=== PATIENT | female | born 1950 | race Caucasian/White ===

== ENCOUNTER → 2018-02-17 00:56 | Outpatient (CLI) | payer MEDICARE, SELFPAY ==
--- NOTE | 2018-02-17 11:01 | DI.REPORT_ITS ---
SYMPTOM/DIAGNOSIS: SCREENING MAMMO, Z12.31, PREVENTATIVE HEALTH ARE Z00.00 MAMMOGRAM: 02/17 Mammograms were interpreted according to the usual protocol including computer analysis with CAD system, tomosynthesis and C view imaging. The breasts are of moderate density with fairly symmetrical distribution of fibroglandular tissue. No dominant mass or clumped microcalcification identified in either breast No previous films available for comparison. CONCLUSION: No specific evidence of malignancy at this time. Routine screening examinations are suggested at yearly intervals in the age group according to the ACS/ACR guidelines. Category 1. Breast density category B. MQSA ASSESSMENT OF FINDINGS: Negative. Category 1. Patient will receive a letter notifying them of these results. BI-RADS category B. There are scattered areas of fibroglandular density.
== END ==
PROVIDERS: PCP Internal Medicine; Visit Provider Nurse Practitioner Family
DX: Z12.31 Encounter for screening mammogram for malignant neoplasm of breast (principal)
CPT/HCPCS: 77063; 77067

== ENCOUNTER 2018-02-22 10:30 | Outpatient (RCR) | payer MEDICARE, SELFPAY ==
--- NOTE | 2018-02-09 11:53 | PTTR_ITS ---
DATE: 02/09/18 SUBJECTIVE: Paola continues to note improvement in her mobility and functional activities. OBJECTIVE: * [X] Aquatic Therapy - (95653 x1): Patient completed a therapeutic exercise program in an aquatic setting for global strengthening and conditioning with decompression for pain relief, as per flow sheet. Patient required skilled to avoid compensatory movement patterns. Patient tolerated a slight progression in her program today, with good tolerance. Patient was encouraged to perform activities without pool wall support, to focus on improved core stability. Patient ended with deep water biking, DKTC, and traction. Direct treatment time: 15 minutes Total treatment time: 35 minutes
--- NOTE | 2018-02-11 15:44 | AT_ITS ---
02/11/18 SUBJECTIVE: Paola reports that she is feeling pretty sore today and states that it is something that she must have done at home and doesn't feel that it is related to her aquatic therapy program. She also reports that she has continued difficulty with descending stairs and would like to work on that a little bit if possible. ATx1 Pt completed a therapeutic exercise program in aquatic setting for general conditioning with decompression for pain relief as per flow sheet. Added functional step down exercise today to pt's program which was tolerated well. Pt tolerated a progression in her program today with modifications made to reps are noted on flow sheet. Pt ends with deep water biking, BKKC and traction. Direct Time: 20 minutes Total Time: 40 minutes
--- NOTE | 2018-02-16 10:30 | NT_ITS ---
02/16/18 Cancelled today's aquatic therapy session. Svetlana Lujan, CARD PLAYER
--- NOTE | 2018-02-18 15:31 | PTTR_ITS ---
DATE: 02/18/18 SUBJECTIVE: Alyssa states that she's a little stiff today, as she was not able to make it to the pool on Thursday. OBJECTIVE: * [X] Aquatic Therapy - (88165 x1): Patient completed a therapeutic exercise program in an aquatic setting for general conditioning with decompression for pain relief, as per flow sheet. Patient was able to tolerate a progression in her program today, see flow sheet for modifications made to reps and resistance. Patient continues to require cuing for posture and appropriate movement mechanics. Patient ends with deep end biking and traction. Direct treatment time: 20 minutes Total treatment time: 40 minutes
--- NOTE | 2018-02-22 10:30 | PTTR_ITS ---
DATE: 02/22/18 SUBJECTIVE: Paola is in good spirits today. She feels that she still making steady progress. Pool has been helpful. She is able to stay on her feet for 10 min periods now before her back pain starts bothering her, then she sits for a couple mins and it resolves, then she is back up and going. She notes that she is about 75% back to her normal functional activities including housework, etc. . . Her boy wants to take her to the fair, but she does not feel she is capable of handling this yet due to her inability to stand for prolonged period and does not want to spend time in a wheelchair at the [facility], etc. . . She also complains of occasional paresthesias throughout the lateral aspect of the R thigh, not necessarily associated with having back pain. She is sleeping well. Therapeutic procedures (13048u7). She is recovering from an L3 radiculitis. She has been attending aqua therapy for decompression and strengthening exercises. She is on an independent program now. GAIT: Ambulates with some mild antalgia on the R. ARTICULAR: Lumbar movements flexion is non-painful. Distance between fingertips and floor is approximately 8-10. Her extension is at 0 to +10 degrees and sidebending is non-painful, although hypomobile. Her hip movements are non-irritable. She has mild limitation within an articular pattern on the R. She has (-) SLR bilaterally, but tight hamstrings at 60 degrees, (-) femoral nerve stretch today. NEURO: Decreased KJ on the R +1 compared to +2 L. AJ's are hyporeflexive. She still has weakness with her R hip flexor at 4/5, very subtle weakness of the R quad compared to last visit. She has diminished sensation to light touch throughout the anterolateral aspect of the R thigh. Remaining musculature is 5/5. I upgrade her HEP to include additional core strengthening exercises, with abdominal strengthening while performing her Kegel exercise, along with diaphragmatic breathing. Direct treatment time: 30 mins Total treatment time: 30 mins A: Continues to move in a positive direction. She still has some weakness with her R hip flexor, but stronger than when last seen. More importantly, she is having much less pain and she is up and about more now and she is still seeing changes from week to week. P: Encourage Lacy to continue with her aqua program along with her core strengthening. Will give her another month to heal, then if she continues to improve at the rate she has been, will start her on some dry land strengthening and conditioning program, etc. . . . DLW/dl
== END 2018-03-05 23:59 | disposition home or self-care (01) ==
LOC: PT 10:30
PROVIDERS: PCP Internal Medicine; Referring Provider Physician Assistant; Visit Provider Physician Assistant
DX: M54.41 Lumbago with sciatica, right side (principal)
CPT/HCPCS: 97110; 97113

== ENCOUNTER 2018-03-05 09:38 | Outpatient (CLI) | payer MEDICARE, SELFPAY ==
--- NOTE | 2018-03-05 08:30 | DIABASSESS_ITS ---
DESCRIPTION/ASSESSMENT: Paola presents for diabetes self management with aq focus on food due to a 25 pound weight gain and high blood sugars. She reports eating apple and nuts for breakfast; hamburg with bun for lunch, hamburg with lettuce/tomato for supper. This is typical for amount of carbohydrate eaten in a meal. She is eating up to 4 carbohydrate servings most days. Paola is physically active with water aerobics through PT and does her home PT exercises faithfully daily. She has suffered from a herniated disc and received steroids which also caused her blood sugars to increase. She was not able to get them back down after stopping the prednisone. Paola monitors blood sugars before each meal and has documented blood sugar, food and insulin dosing. She states it is helpful to document her food. She takes 46units Lantus and insulin for food based on food plus insulin correction. She recognizes that the insulin correction dose is not correcting her blood sugars. INTERVENTION: DSME is provided in the following AADE 7 areas based on patients interest and assessment of needs: Discussed food choices and she agrees she could give up bread, recognizing she needs to do something different. Discussed increased insulin dosing impact on weight. Despite that, she will increase her basal insulin to 50units and follow fasting blood sugar. ACTION PLAN: Paola will cut out all grains and increase vegetables for the next week; increase basal insulin to 50units; continue tracking food. We will be in touch early next week. Individual MNT __3__ units billed TIME IN: 829 OUT: 924 No DM group education series being offered at this time.
== END 2018-03-05 09:39 ==
PROVIDERS: PCP Internal Medicine; Visit Provider Dietitian, Registered
DX: E11.9 Type 2 diabetes mellitus without complications (principal); Z79.4 Long term (current) use of insulin; Z71.3 Dietary counseling and surveillance
CPT/HCPCS: 97802

== ENCOUNTER 2018-03-29 12:29 | Outpatient (REF) | payer MEDICARE, SELFPAY ==
[2018-03-29 13:29] LABS: Absolute Basophil Count 0.01 k/cumm (0.0-0.2); Absolute Eosinophil Count 0.13 k/cumm (0.0-0.7); Absolute Lymphocyte Count 0.87 k/cumm (1.2-3.4); Absolute Monocyte Count 0.22 k/cumm (0.11-0.7); Absolute Neutrophil Count 2.16 k/cumm (1.2-6.7); Basophils % 0.3; Eosinophils % 3.8; HCT 37.4 % (36.0-46.0); HGB 12.4 g/dL (12.0-15.5); Lymphocytes % 25.7; Mean Corp. HGB Concentration 33.2 g/dL (32.0-36.0); Mean Corpuscular Hemoglobin 28.3 pg (27.0-33.0); Mean Corpuscular Volume 85.4 fL (80-95); Monocytes % 6.5; Neutrophils % 63.7; Platelet Count 115 x1000/uL (130-400); RBC 4.38 m/cumm (4.00-5.20); RBC Distribution Width 14.5 % (11.7-14.6); White Blood Cell Count 3.39 k/cumm (4.4-10.8)
[2018-03-29 14:08] LABS: ALT 39 U/L (12-78); AST 27 U/L (15-37); Albumin 3.6 g/dL (3.4-5.0); Alkaline Phosphatase 90 U/L (46-116); Anion Gap 13.1 mmol/L (3-11); BUN 25 mg/dL (7-18); Bilirubin, Total 0.5 mg/dL (0.2-1.0); CO2 25.9 mmol/L (21.0-32.0); CREATININE 1.09 mg/dL (0.55-1.02); Calcium 9.1 mg/dL (8.5-10.1); Chloride 105 mmol/L (98-107); Estimated GFR 49.92 (mL/min/1.73m2); Glucose 152 mg/dL (70-100); Magnesium 1.7 mg/dL (1.8-2.4); Potassium 3.9 mmol/L (3.5-5.1); Sodium 144 mmol/L (136-145); Total Protein 6.9 g/dL (6.4-8.2); Vitamin B12 627 pg/mL (193-986)
== END 2018-03-29 12:49 ==
LOC: NCHCN 12:29
PROVIDERS: PCP Internal Medicine; Visit Provider Nurse Practitioner Family
DX: G47.62 Sleep related leg cramps (principal); F43.23 Adjustment disorder with mixed anxiety and depressed mood; E11.9 Type 2 diabetes mellitus without complications; E78.5 Hyperlipidemia, unspecified; K30 Functional dyspepsia; E66.9 Obesity, unspecified; M54.5 Low back pain; D50.9 Iron deficiency anemia, unspecified
CPT/HCPCS: 80053; 82607; 83735; 85025

== ENCOUNTER 2018-04-26 08:44 | Outpatient (CLI) | payer MEDICARE, SELFPAY ==
[2018-04-26 13:18] LABS: Abs Immature Grans 0.01 k/cumm (0.0-0.09); Absolute Basophil Count 0.02 k/cumm (0.0-0.2); Absolute Eosinophil Count 0.15 k/cumm (0.0-0.7); Absolute Lymphocyte Count 1.16 k/cumm (1.2-3.4); Absolute Monocyte Count 0.32 k/cumm (0.11-0.7); Absolute Neutrophil Count 3.59 k/cumm (1.2-6.7); Basophils % 0.4; Eosinophils % 2.9; HGB 13.3 g/dL (12.0-15.5); Immature Grans % 0.2; Lymphocytes % 22.1; Mean Corp. HGB Concentration 34.1 g/dL (32.0-36.0); Mean Corpuscular Hemoglobin 28.2 pg (27.0-33.0); Mean Corpuscular Volume 82.6 fL (80-95); Mean Platelet Volume 9.7 fL (8.0-11.0); Monocytes % 6.1; Neutrophils % 68.3; Platelet Count 125 x1000/uL (130-400); RBC 4.72 m/cumm (4.00-5.20); RBC Distribution Width 14.5 % (11.7-14.6); White Blood Cell Count 5.25 k/cumm (4.4-10.8)
[2018-04-26 13:30] LABS: ALT 34 U/L (12-78); AST 30 U/L (15-37); Albumin 3.6 g/dL (3.4-5.0); Alkaline Phosphatase 94 U/L (46-116); Anion Gap 12.2 mmol/L (3-11); BUN 24 mg/dL (7-18); Bilirubin, Total 0.8 mg/dL (0.2-1.0); CO2 25.8 mmol/L (21.0-32.0); CREATININE 1.11 mg/dL (0.55-1.02); Calcium 9.3 mg/dL (8.5-10.1); Chloride 101 mmol/L (98-107); Estimated GFR 48.88 (mL/min/1.73m2); Glucose 141 mg/dL (70-100); Potassium 3.8 mmol/L (3.5-5.1); Sodium 139 mmol/L (136-145); Total Protein 7.6 g/dL (6.4-8.2)
[2018-04-26 13:36] LABS: Iron 104 ug/dL (50-175); Total Iron Binding Capacity 373 ug/dL (250-450); Transferrin Sat 28 % (15-50)
[2018-04-26 13:56] LABS: Ferritin 35 ng/mL (8-388)
[2018-04-27 13:36] LABS: Albumin 55.1 % (55.8-66.1); Comment SEE COMMENTS; Monoclonal Spike SEE COMMENTS %; Total Protein 7.1 g/dl (6.3-8.2)
== END 2018-04-26 09:04 ==
PROVIDERS: PCP Internal Medicine; Visit Provider Internal Medicine Hematology & Oncology
DX: D50.0 Iron deficiency anemia secondary to blood loss (chronic) (principal); D69.6 Thrombocytopenia, unspecified; D47.2 Monoclonal gammopathy; Z96.642 Presence of left artificial hip joint; Z12.11 Encounter for screening for malignant neoplasm of colon; I10 Essential (primary) hypertension; E11.9 Type 2 diabetes mellitus without complications
CPT/HCPCS: 36415; 80053; 82728; 83540; 83550; 84165; 85025; 86320

== ENCOUNTER 2018-05-14 06:45 | Day surgery (SDC) | payer MEDICARE, SELFPAY ==
[2018-05-14 07:21] VITALS: BP 125/74; PULSE 95; RESP 18; TEMP 36.3; O2SAT 98
[2018-05-14] MEDS: Lactated Ringers 1,000 ML 30 ML IV (07:35)
--- NOTE | 2018-05-14 08:36 | BOWEL_PTH ---
PATIENT: Paola Rodriguez LOC: [facility] U#:[id number] AGE/SX: 67/F ROOM: RE05/14/[address]: Olayinka Grant DO : 1950 BED: DIS: 05/14/2018 SPEC #: [id number] RECD: 05/14/18 12:23 STATUS: ABIMAEL REQ #: [id number] NELIDA: 05/14/18 08:[address]: Olayinka Grant DEPT: Surgical Specimen RECD BY: Christiane Allred ENTERED: 05/14/18 12:24 SP TYPE: Bowel OTHR DR: Misael Qiu Tissues: 1 - BIOPSY BOWEL Procedures: GROSS AND MICRO LEVEL 4 Comments: [id number]
--- NOTE | 2018-05-14 08:57 | W.COLOREPORT ---
Date of service: 05/14/18 Time of Service: 08:22 Colonoscopy Report Date of procedure: 05/14/18 Pre-op diagnosis general: Colorectal cancer screening Post-op diagnosis procedure note: other (1. Ascending colon polyp 2. Scattered sigmoid diverticula) Procedure: Colonoscopy to the cecum with biopsy by cold forceps Surgeon: Olayinka Grant Anesthesia proc note operative: MAC (Monty Elizondo CRNA; ASA 3 Mallampati class II) Estimated blood loss (mL): 1 Pathology: other (A sending colon polyp) Complications: None Disposition: same day Indications: 67-year-old female presenting for colorectal cancer screening. She has no family history of colorectal cancer and has been asymptomatic. The colonoscopy procedure was discussed with her in the risks of the procedure was reviewed. All her questions were answered to her satisfaction. Prep: Miralax/Dulcolax (Prep quality good) Procedure Start Time: 07:22 Procedure End Time: 08:50 Retraction Time: 19 Findings: In examining the colon from cecum to anus, the patient was noted to have scattered sigmoid diverticulosis. One polyp less than 1 cm in greatest diameter was identified in the ascending colon and removed by cold biopsy forceps. No other abnormalities are noted of the colon, and, and anus. Procedure Description: The patient was seen in the day surgery waiting area. Her identification was confirmed, and procedure checked. She was then brought to the procedure room. Monitoring for telemetry, blood pressure, oxygen saturation, and end tidal CO2 monitoring were applied. An appropriate time out was performed to confirm, identification, allergies, medication, procedure, was performed. Sedation was titrated for affect by the DIVIDING MACHINE OPERATOR; Once adequate sedation was achieved, I performed a inspection of the external perineum, and a digitial rectal examination. No significant external abnormalities were noted. On digital rectal examination, there was no blood, no masses, good rectal tone. I advanced the colonoscope from the anus to the cecum under direct visualization. The cecum was identified by the ileal-cecal valve, and the appendiceal orifice. The scope was then withdrawn in circumferential manner from the cecum to the rectum. There were scattered diverticuli seen in the sigmoid colon, and a less than 1 cm in greatest diameter polyp was seen in the ascending colon, subsequently removed by cold biopsy forceps. No other abnormalities were noted of the colon. The scope was then withdrawn into the rectum, and retroflexed. No abnormalities were noted of the rectum or anorectal junction. The scope was then withdrawn, terminating the procedure. There were no complications during the procedure, and the patient tolerated the procedure well. She was returned to the day surgery recovery area in good condition. Plan: We will await pathology before making further recommendations.
--- NOTE | 2018-05-14 09:05 | W.PM.DSUDISC ---
Discharge Plan Disposition Patient Disposition: HOME Condition: Good Discharge Details Reason For Visit: SCREENING Attending Provider: Olayinka Grant Primary Care Provider: Misael Qiu Home Meds and New Rx's Prescriptions: Continue aspirin [Aspir-81] 81 MG tablet,delayed release (DR/EC) 81 mg PO DAILY Qty: 30 RF: 0 insulin detemir U-100 [Levemir FlexTouch U-100 Insuln] 100 UNIT/1 ML insulin pen 40 unit HS RF: 0 triamterene-hydrochlorothiazid [Dyazide] 1 EACH capsule 1 tab-cap PO DAILY RF: 0 blood-glucose meter [OneTouch UltraMini] 1 EACH kit 1 ea Miscellaneous DAILY RF: 0 atenolol 50 MG tablet 25 mg PO DAILY RF: 0 insulin aspart U-100 [Novolog Flexpen U-100 Insulin] 100 UNIT/1 ML insulin pen subcut RF: 0 bupropion HCl 300 MG tablet extended release 24 hr 300 mg PO DAILY RF: 0 magnesium oxide 400 MG capsule 400 mg PO BID RF: 0 TUMERIC DAILY RF: 0 docusate sodium 100 mg Capsule 100 mg PO DAILY RF: 0 multivitamin [Multi-Day] 1 EACH tablet 1 ea PO DAILY RF: 0 amoxicillin 500 MG capsule 4 tab PO DIRECTED RF: 0 atorvastatin 40 MG tablet 40 mg PO HS RF: 0 omeprazole 40 MG capsule,delayed release(DR/EC) 40 mg PO DAILY RF: 0 losartan 25 MG tablet 25 mg PO DAILY RF: 0 cinnamon bark 500 MG capsule 1,000 mg PO DAILY RF: 0 potassium chloride [K-Tab] 20 MEQ tablet extended release 20 meq PO BID RF: 0 Discharge Instructions Instructions: Colonoscopy (DC) Activity:: Activity as Tolerated Diet:: As Tolerated Discharge Orders Discharge Orders: Discharge Order (Routine); Ordered 05/14/18 Ordered By: Olayinka Grant DS: Diagnosis Discharge Diagnosis (1) Encounter for screening colonoscopy: Start date: 05/14/18 Start time: 07:22 Status: Acute Asessment and Plan: Colonoscopy performed Colonoscopy Report Date of procedure: 05/14/18 Pre-op diagnosis general: Colorectal cancer screening Post-op diagnosis procedure note: other (1. Ascending colon polyp 2. Scattered sigmoid diverticula) Procedure: Colonoscopy to the cecum with biopsy by cold forceps Surgeon: Olayinka Grant Anesthesia proc note operative: MAC (Monty Elizondo CRNA; ASA 3 Mallampati class II) Estimated blood loss (mL): 1 Pathology: other (A sending colon polyp) Complications: None Disposition: same day Indications: 67-year-old female presenting for colorectal cancer screening. She has no family history of colorectal cancer and has been asymptomatic. The colonoscopy procedure was discussed with her in the risks of the procedure was reviewed. All her questions were answered to her satisfaction. Prep: Miralax/Dulcolax (Prep quality good) Procedure Start Time: 07:22 Procedure End Time: 08:50 Retraction Time: 19 Findings: In examining the colon from cecum to anus, the patient was noted to have scattered sigmoid diverticulosis. One polyp less than 1 cm in greatest diameter was identified in the ascending colon and removed by cold biopsy forceps. No other abnormalities are noted of the colon, and, and anus. Procedure Description: The patient was seen in the day surgery waiting area. Her identification was confirmed, and procedure checked. She was then brought to the procedure room. Monitoring for telemetry, blood pressure, oxygen saturation, and end tidal CO2 monitoring were applied. An appropriate time out was performed to confirm, identification, allergies, medication, procedure, was performed. Sedation was titrated for affect by the CARTRIDGE ASSEMBLING MACHINE ADJUSTER; Once adequate sedation was achieved, I performed a inspection of the external perineum, and a digitial rectal examination. No significant external abnormalities were noted. On digital rectal examination, there was no blood, no masses, good rectal tone. I advanced the colonoscope from the anus to the cecum under direct visualization. The cecum was identified by the ileal-cecal valve, and the appendiceal orifice. The scope was then withdrawn in circumferential manner from the cecum to the rectum. There were scattered diverticuli seen in the sigmoid colon, and a less than 1 cm in greatest diameter polyp was seen in the ascending colon subsequently removed by cold biopsy forceps. No other abnormalities were noted of the colon. The scope was then withdrawn into the rectum, and retroflexed. No abnormalities were noted of the rectum or anorectal junction. The scope was then withdrawn, terminating the procedure. There were no complications during the procedure, and the patient tolerated the procedure well. She was returned to the day surgery recovery area in good condition. Plan: We will await pathology before making further recommendations.
[2018-05-14 09:20] VITALS: BP 80/41; PULSE 78; RESP 16; TEMP 36; O2SAT 95
[2018-05-14 09:34] VITALS: BP 99/53; PULSE 78; RESP 16; TEMP 36.2; O2SAT 96
[2018-05-14 10:02] VITALS: BP 100/55; PULSE 77; RESP 16; TEMP 36; O2SAT 94
== END 2018-05-14 10:30 | disposition home or self-care (01) ==
PROVIDERS: PCP Internal Medicine; Visit Provider Surgery
PROC: 0DJD8ZZ Inspection of Lower Intestinal Tract, Via Natural or Artificial Opening Endoscopic (ICD-10-PCS; CPT 45378; principal; 2018-05-14 08:30)
DX: Z12.11 Encounter for screening for malignant neoplasm of colon (principal); K63.5 Polyp of colon; K57.30 Diverticulosis of large intestine without perforation or abscess without bleeding; E11.9 Type 2 diabetes mellitus without complications; Z79.4 Long term (current) use of insulin; I10 Essential (primary) hypertension
CPT/HCPCS: 45380; 88305

== ENCOUNTER 2018-08-09 13:11 | Outpatient (REF) | payer MEDICARE, SELFPAY ==
[2018-08-09 21:30] LABS: Magnesium 1.4 mg/dL (1.8-2.4)
== END 2018-08-09 13:31 ==
LOC: NCHCN 13:11
PROVIDERS: PCP Internal Medicine; Visit Provider Nurse Practitioner Family
DX: D50.9 Iron deficiency anemia, unspecified (principal); E11.9 Type 2 diabetes mellitus without complications; E78.5 Hyperlipidemia, unspecified; I10 Essential (primary) hypertension; F43.23 Adjustment disorder with mixed anxiety and depressed mood; E83.42 Hypomagnesemia; M54.5 Low back pain; G47.62 Sleep related leg cramps
CPT/HCPCS: 83735

== ENCOUNTER 2018-09-07 11:44 | Outpatient (REF) | payer MEDICARE, SELFPAY ==
[2018-09-07 21:27] LABS: Magnesium 1.6 mg/dL (1.8-2.4)
== END 2018-09-07 12:04 ==
LOC: NCHCN 11:44
PROVIDERS: PCP Internal Medicine; Visit Provider Nurse Practitioner Family
DX: E83.42 Hypomagnesemia (principal); G47.62 Sleep related leg cramps
CPT/HCPCS: 83735

== ENCOUNTER 2018-10-07 09:18 | Outpatient (REF) | payer MEDICARE, SELFPAY ==
[2018-10-07 12:25] LABS: Magnesium 1.6 mg/dL (1.8-2.4)
== END 2018-10-07 09:38 ==
LOC: NCHCN 09:18
PROVIDERS: PCP Internal Medicine; Visit Provider Nurse Practitioner Family
DX: E83.42 Hypomagnesemia (principal)
CPT/HCPCS: 83735

== ENCOUNTER 2018-11-19 12:11 | Outpatient (REF) | payer MEDICARE, SELFPAY ==
[2018-11-19 20:21] LABS: Magnesium 1.7 mg/dL (1.8-2.4)
== END 2018-11-19 12:31 ==
LOC: NCHCN 12:11
PROVIDERS: PCP Internal Medicine; Visit Provider Nurse Practitioner Family
DX: K30 Functional dyspepsia (principal); I10 Essential (primary) hypertension; E11.9 Type 2 diabetes mellitus without complications; E78.5 Hyperlipidemia, unspecified; E83.42 Hypomagnesemia; D50.9 Iron deficiency anemia, unspecified; F43.23 Adjustment disorder with mixed anxiety and depressed mood; E66.9 Obesity, unspecified
CPT/HCPCS: 83735

== ENCOUNTER 2018-11-30 01:13 | Outpatient (CLI) | payer MEDICARE, SELFPAY ==
--- NOTE | 2018-11-30 09:00 | DIABASSESS_ITS ---
DESCRIPTION/ASSESSMENT: Paola Rodriguez presents for diabetes self management with blood sugars higher than she would like. A1c ~9 Paola has started walking 1/2 hour a day for past few weeks. States she sleeps well ~6 hours a night. States her depression is improved on medication. She reports coping skills of walking away from stressful situations. Paola states she doesn't eat until lunchtime. Often has salad, vegetables and protein for lunch and supper. She has fruit or veggies in evening if hungry. Being bad means eating potato or bread. She has recently documented her food to see what might be causing blood sugars to vary, however she did not find that eating carbohydrate increased her blood sugar. She limits carbohydrate to 90 grams per day. Monitors blood sugars before meals and doses Novolog if she is eating. She wonders if she should take Novolog when she first gets up to correct hyperglycemia even when she isn't eating. Fasting blood sugars 2-300s; before other meals 100s-low 200s most meals. Medication of 46u Levemir once a day; mealtime insulin on scale with 10units for food and 1 unit to correct 20mg/dl above 130mg/dl. INTERVENTION: DSME is provided in the following AADE 7 areas based on patients interest and assessment of needs: Food Guidelines - discussed food choices for carbohydrate/sugar. Discussed hunger signs. Medication - It appears she does not have adequate medication given her food intake and blood sugars. Discussed using her scale as correction and adding 1 unit for 5 grams carbohydrate. In addition, blood sugars tend to be higher fasting than before supper. Suggest increasing basal insulin to 50units (10% increase). Discussed action of Levemir and benefit of Tresiba or longer acting basal insulin. Monitoring - Test blood sugar in the night 1-2 nights this week to assess basal insulin impact. ACTION PLAN: 50u Levemir at night; add 1 unit for 5 grams of carbohydrate with mealtime insulin dose by counting carbohydrate grams eaten Test blood sugar in the middle of the night Individual MNT __2__ units billed for 35 minute of a 50 minute visit. No DM group education series being offered at this time.
== END 2018-11-30 01:33 ==
PROVIDERS: PCP Internal Medicine; Visit Provider Dietitian, Registered
DX: E11.9 Type 2 diabetes mellitus without complications (principal); Z79.4 Long term (current) use of insulin; Z71.3 Dietary counseling and surveillance
CPT/HCPCS: 97802

== ENCOUNTER → 2019-01-27 08:54 | Outpatient (BNVA) | payer MEDICARE, SELFPAY | PROVIDERS: PCP Internal Medicine; Visit Provider Orthopaedic Surgery | DX: Z47.1 Aftercare following joint replacement surgery (principal); Z96.642 Presence of left artificial hip joint; I10 Essential (primary) hypertension; E11.9 Type 2 diabetes mellitus without complications; Z79.4 Long term (current) use of insulin | CPT/HCPCS: 99212; 99213 ==

== ENCOUNTER 2019-02-16 04:09 | Outpatient (CLI) | payer MEDICARE, SELFPAY ==
[2019-02-16 11:39] LABS: COMMENT (LAB VIEW ONLY) 150.56 mg/dL
[2019-02-16 12:23] LABS: Anion Gap 13.6 mmol/L (3-11); BUN 19 mg/dL (7-18); CO2 27.4 mmol/L (21.0-32.0); CREATININE 1.31 mg/dL (0.55-1.02); Calcium 9.3 mg/dL (8.5-10.1); Calculated LDL 102 mg/dL; Chloride 101 mmol/L (98-107); Cholesterol 190 mg/dL (50-200); Estimated GFR 40.26 (mL/min/1.73m2); Glucose 196 mg/dL (70-100); HDL Cholesterol 46 mg/dL (40-60); Potassium 3.9 mmol/L (3.5-5.1); Sodium 142 mmol/L (136-145); TSH 1.75 uIU/mL (0.36-3.74); Triglyceride 211 mg/dL (30-150)
[2019-02-17 12:18] LABS: C-Peptide 3.8 ng/mL (1.1 - 4.4)
== END 2019-02-16 04:29 ==
PROVIDERS: PCP Internal Medicine; Referring Provider Internal Medicine Hematology & Oncology; Visit Provider Internal Medicine Endocrinology, Diabetes & Metabolism
DX: E11.65 Type 2 diabetes mellitus with hyperglycemia (principal); Z68.41 Body mass index [BMI] 40.0-44.9, adult; E66.2 Morbid (severe) obesity with alveolar hypoventilation
CPT/HCPCS: 36415; 80048; 80061; 83721; 82043; 82570; 84443; 84681

== ENCOUNTER 2019-02-21 10:55 | Outpatient (REF) | payer MEDICARE, SELFPAY ==
[2019-02-21 12:21] LABS: Abs Immature Grans 0.01 k/cumm (0.0-0.09); Absolute Basophil Count 0.01 k/cumm (0.0-0.2); Absolute Eosinophil Count 0.16 k/cumm (0.0-0.7); Absolute Lymphocyte Count 1.03 k/cumm (1.2-3.4); Absolute Monocyte Count 0.27 k/cumm (0.11-0.7); Absolute Neutrophil Count 2.85 k/cumm (1.2-6.7); Basophils % 0.2; Eosinophils % 3.7; HCT 41.1 % (36.0-46.0); HGB 13.7 g/dL (12.0-15.5); Immature Grans % 0.2; Lymphocytes % 23.8; Mean Corp. HGB Concentration 33.3 g/dL (32.0-36.0); Mean Corpuscular Hemoglobin 28.5 pg (27.0-33.0); Mean Corpuscular Volume 85.6 fL (80-95); Mean Platelet Volume 10.4 fL (8.0-11.0); Monocytes % 6.2; Neutrophils % 65.9; Platelet Count 111 x1000/uL (130-400); RBC Distribution Width 13.8 % (11.7-14.6); White Blood Cell Count 4.33 k/cumm (4.4-10.8)
[2019-02-21 15:52] LABS: ALT 28 U/L (12-78); AST 20 U/L (15-37); Albumin 3.8 g/dL (3.4-5.0); Alkaline Phosphatase 99 U/L (46-116); Bilirubin, Total 0.7 mg/dL (0.2-1.0); Magnesium 1.8 mg/dL (1.8-2.4); TSH (W/Ref FT4) 2.27 uIU/mL (0.36-3.74); Total Protein 7.5 g/dL (6.4-8.2); Vitamin B12 485 pg/mL (193-986)
[2019-02-21 16:08] LABS: Bilirubin, Direct 0.18 mg/dL (0.00-0.20)
== END 2019-02-21 11:15 ==
LOC: NCHCN 10:55
PROVIDERS: PCP Internal Medicine; Visit Provider Nurse Practitioner Family
DX: E83.42 Hypomagnesemia (principal); E11.9 Type 2 diabetes mellitus without complications; N28.9 Disorder of kidney and ureter, unspecified; D50.9 Iron deficiency anemia, unspecified; D72.819 Decreased white blood cell count, unspecified; F43.23 Adjustment disorder with mixed anxiety and depressed mood; R47.01 Aphasia; M54.5 Low back pain
CPT/HCPCS: 80076; 82607; 83735; 84443; 85025

== ENCOUNTER 2019-05-31 15:13 | Outpatient (REF) | payer MEDICARE, SELFPAY ==
[2019-05-31 21:18] LABS: Abs Immature Grans 0.01 k/cumm (0.0-0.09); Absolute Basophil Count 0.02 k/cumm (0.0-0.2); Absolute Eosinophil Count 0.21 k/cumm (0.0-0.7); Absolute Lymphocyte Count 1.09 k/cumm (1.2-3.4); Absolute Monocyte Count 0.24 k/cumm (0.11-0.7); Absolute Neutrophil Count 3.22 k/cumm (1.2-6.7); Basophils % 0.4; Eosinophils % 4.4; HCT 40.7 % (36.0-46.0); Immature Grans % 0.2; Lymphocytes % 22.8; Mean Corp. HGB Concentration 34.4 g/dL (32.0-36.0); Mean Corpuscular Hemoglobin 29.2 pg (27.0-33.0); Mean Corpuscular Volume 84.8 fL (80-95); Mean Platelet Volume 10.3 fL (8.0-11.0); Neutrophils % 67.2; Platelet Count 123 x1000/uL (130-400); RBC Distribution Width 13.8 % (11.7-14.6); White Blood Cell Count 4.79 k/cumm (4.4-10.8)
[2019-05-31 21:47] LABS: ALT 33 U/L (14-59); AST 20 U/L (15-37); Albumin 3.8 g/dL (3.4-5.0); Alkaline Phosphatase 84 U/L (46-116); Anion Gap 12.6 mmol/L (3-11); BUN 21 mg/dL (7-18); Bilirubin, Total 0.8 mg/dL (0.2-1.0); CO2 25.4 mmol/L (21.0-32.0); CREATININE 1.32 mg/dL (0.55-1.02); Calcium 9.1 mg/dL (8.5-10.1); Chloride 103 mmol/L (98-107); Ferritin 71 ng/mL (8-252); Glucose 146 mg/dL (74-106); Sodium 141 mmol/L (136-145); Total Protein 7.4 g/dL (6.4-8.2)
[2019-06-03 11:07] LABS: Kappa Free Light Chain 4.27 mg/dL (0.33-1.94); Lambda Free Light Chain 2.46 mg/dL (0.57-2.63)
[2019-06-06 15:56] LABS: Albumin 57.6 % (55.8-66.1); Comment (See Note); Monoclonal Spike 2.5 % (None Seen); Total Protein 7.3 g/dL (6.3-8.2)
== END 2019-05-31 15:33 ==
LOC: NCHCN 15:13
PROVIDERS: PCP Internal Medicine; Visit Provider Nurse Practitioner Family
DX: D50.9 Iron deficiency anemia, unspecified (principal); D72.819 Decreased white blood cell count, unspecified; D69.6 Thrombocytopenia, unspecified; E83.42 Hypomagnesemia; I10 Essential (primary) hypertension; E11.9 Type 2 diabetes mellitus without complications; F43.23 Adjustment disorder with mixed anxiety and depressed mood; R25.1 Tremor, unspecified; M54.5 Low back pain; R47.01 Aphasia; N28.9 Disorder of kidney and ureter, unspecified
CPT/HCPCS: 80053; 82728; 83883; 84165; 85025

== ENCOUNTER 2019-07-08 11:35 | Outpatient (CLI) | payer MEDICARE, SELFPAY ==
[2019-07-08 13:00] LABS: ALT 34 U/L (14-59); AST 22 U/L (15-37); Albumin 3.6 g/dL (3.4-5.0); Alkaline Phosphatase 88 U/L (46-116); Anion Gap 11.6 mmol/L (3-11); BUN 26 mg/dL (7-18); Bilirubin, Total 0.7 mg/dL (0.2-1.0); CO2 26.4 mmol/L (21.0-32.0); CREATININE 1.19 mg/dL (0.55-1.02); Calcium 9.9 mg/dL (8.5-10.1); Chloride 103 mmol/L (98-107); Creatine Kinase 78 U/L (26-192); Estimated GFR 44.97 (mL/min/1.73m2); Glucose 206 mg/dL (74-106); Magnesium 1.5 mg/dL (1.8-2.4); Potassium 3.9 mmol/L (3.5-5.1); Sodium 141 mmol/L (136-145); Total Protein 7.2 g/dL (6.4-8.2)
[2019-07-08 13:03] LABS: Troponin I < 0.05 ng/Ml (<0.06)
== END 2019-07-08 11:55 ==
PROVIDERS: PCP Internal Medicine; Visit Provider Nurse Practitioner Family
DX: E07.9 Disorder of thyroid, unspecified (principal)
CPT/HCPCS: 36415; 80053; 82550; 83735; 84484

== ENCOUNTER 2019-08-30 10:11 | Outpatient (CLI) | payer MEDICARE, SELFPAY ==
[2019-08-30 11:29] LABS: ALT 30 U/L (14-59); AST 19 U/L (15-37); Albumin 3.7 g/dL (3.4-5.0); Alkaline Phosphatase 84 U/L (46-116); Anion Gap 8.8 mmol/L (3-11); BUN 18 mg/dL (7-18); Bilirubin, Total 0.7 mg/dL (0.2-1.0); CO2 31.2 mmol/L (21.0-32.0); CREATININE 1.19 mg/dL (0.55-1.02); Calcium 9.3 mg/dL (8.5-10.1); Chloride 103 mmol/L (98-107); Estimated GFR 44.97 (mL/min/1.73m2); Glucose 117 mg/dL (74-106); Potassium 3.8 mmol/L (3.5-5.1); Sodium 143 mmol/L (136-145); Total Protein 7.5 g/dL (6.4-8.2)
[2019-08-30 12:58] LABS: Hemoglobin A1C 6.7 % (3.8-5.6)
[2019-08-31 15:42] LABS: Fructosamine 253 mcmol/L (200 - 285)
== END 2019-08-30 10:31 ==
PROVIDERS: PCP Internal Medicine; Visit Provider Internal Medicine Endocrinology, Diabetes & Metabolism
DX: E11.65 Type 2 diabetes mellitus with hyperglycemia (principal)
CPT/HCPCS: 36415; 80053; 82985; 83036

== ENCOUNTER 2019-09-05 15:58 | Outpatient (REF) | payer MEDICARE, SELFPAY ==
[2019-09-05 21:42] LABS: Magnesium 2.1 mg/dL (1.8-2.4)
== END 2019-09-05 16:18 ==
LOC: NCHCN 15:58
PROVIDERS: PCP Internal Medicine; Visit Provider Nurse Practitioner Family
DX: I10 Essential (primary) hypertension (principal); E78.5 Hyperlipidemia, unspecified; E11.9 Type 2 diabetes mellitus without complications; D50.9 Iron deficiency anemia, unspecified
CPT/HCPCS: 83735

== ENCOUNTER 2019-12-13 12:25 | Outpatient (REF) | payer MEDICARE, SELFPAY ==
[2019-12-13 21:56] LABS: Abs Immature Grans 0.01 k/cumm (0.0-0.09); Absolute Basophil Count 0.01 k/cumm (0.0-0.2); Absolute Eosinophil Count 0.16 k/cumm (0.0-0.7); Absolute Monocyte Count 0.22 k/cumm (0.11-0.7); Absolute Neutrophil Count 2.52 k/cumm (1.2-6.7); Basophils % 0.3; Eosinophils % 4.3; HCT 40.4 % (36.0-46.0); HGB 13.9 g/dL (12.0-15.5); Immature Grans % 0.3 %; Lymphocytes % 21.5; Mean Corp. HGB Concentration 34.4 g/dL (32.0-36.0); Mean Corpuscular Hemoglobin 30.2 pg (27.0-33.0); Mean Corpuscular Volume 87.8 fL (80-95); Mean Platelet Volume 10.6 fL (8.0-11.0); Monocytes % 5.9; Neutrophils % 67.7; Platelet Count 95 x1000/uL (130-400); RBC Distribution Width 13.6 % (11.7-14.6); White Blood Cell Count 3.72 k/cumm (4.4-10.8)
[2019-12-13 22:23] LABS: Diff Comment Agrees w/ Instrument; RBC Morphology Normal
[2019-12-13 22:27] LABS: Iron 121 ug/dL (50-170); Total Iron Binding Capacity 300 ug/dL (250-450); Transferrin Sat 40 % (15-50)
[2019-12-13 23:07] LABS: ALT 44 U/L (14-59); AST 30 U/L (15-37); Albumin 3.7 g/dL (3.4-5.0); Alkaline Phosphatase 84 U/L (46-116); Anion Gap 10.2 mmol/L (3-11); BUN 22 mg/dL (7-18); Bilirubin, Total 0.8 mg/dL (0.2-1.0); CO2 26.8 mmol/L (21.0-32.0); Calcium 9.2 mg/dL (8.5-10.1); Chloride 104 mmol/L (98-107); Estimated GFR 40.49 (mL/min/1.73m2); Glucose 149 mg/dL (74-106); Magnesium 2.1 mg/dL (1.8-2.4); Sodium 141 mmol/L (136-145); TSH (W/Ref FT4) 1.11 uIU/mL (0.36-3.74); Total Protein 6.8 g/dL (6.4-8.2); Vitamin B12 427 pg/mL (193-986)
[2019-12-16 09:39] LABS: Fructosamine 251 mcmol/L (200 - 285)
== END 2019-12-13 12:45 ==
LOC: NCHCN 12:25
PROVIDERS: PCP Internal Medicine; Visit Provider Nurse Practitioner Family
DX: E11.9 Type 2 diabetes mellitus without complications (principal); I10 Essential (primary) hypertension; R42 Dizziness and giddiness; F43.23 Adjustment disorder with mixed anxiety and depressed mood; R25.1 Tremor, unspecified; N28.9 Disorder of kidney and ureter, unspecified; R19.8 Other specified symptoms and signs involving the digestive system and abdomen
CPT/HCPCS: 80053; 82607; 82985; 83540; 83550; 83735; 84443; 85025

== ENCOUNTER 2020-04-05 11:18 | Outpatient (REF) | payer MEDICARE, SELFPAY ==
[2020-04-05 20:59] LABS: COMMENT (LAB VIEW ONLY) 183.73 mg/dL; Microalb ug/mg Crea 3.3 ug/mg Cr
[2020-04-05 21:02] LABS: BUN 18 mg/dL (7-18); CREATININE 0.98 mg/dL (0.55-1.02); Chloride 106 mmol/L (98-107); Estimated GFR 56.11 (mL/min/1.73m2); Glucose 108 mg/dL (74-106); Potassium 3.6 mmol/L (3.5-5.1); Sodium 141 mmol/L (136-145)
[2020-04-05 21:12] LABS: Hemoglobin A1C 6.5 % (<5.7)
[2020-04-08 10:01] LABS: Fructosamine 261 mcmol/L (200 - 285)
== END 2020-04-05 11:38 ==
LOC: NCHCN 11:18
PROVIDERS: PCP Internal Medicine; Visit Provider Nurse Practitioner Family
DX: E11.9 Type 2 diabetes mellitus without complications (principal)
CPT/HCPCS: 80048; 82043; 82570; 82985; 83036

== ENCOUNTER 2020-07-31 10:02 | Outpatient (REF) | payer MEDICARE, SELFPAY ==
[2020-07-31 14:26] LABS: Hemoglobin A1C 6.7 % (<5.7)
[2020-07-31 14:44] LABS: ALT 29 U/L (14-59); AST 18 U/L (15-37); Albumin 3.7 g/dL (3.4-5.0); Alkaline Phosphatase 78 U/L (46-116); Anion Gap 10.6 mmol/L (3-11); BUN 28 mg/dL (7-18); Bilirubin, Total 0.7 mg/dL (0.2-1.0); CO2 26.4 mmol/L (21.0-32.0); CREATININE 1.37 mg/dL (0.55-1.02); Calcium 9.1 mg/dL (8.5-10.1); Chloride 104 mmol/L (98-107); Estimated GFR 38.12 (mL/min/1.73m2); Glucose 154 mg/dL (74-106); Potassium 3.4 mmol/L (3.5-5.1); Sodium 141 mmol/L (136-145); Total Protein 6.9 g/dL (6.4-8.2)
[2020-08-01 17:54] LABS: Fructosamine 263 mcmol/L (200 - 285)
== END 2020-07-31 10:22 ==
LOC: NCHCN 10:02
PROVIDERS: PCP Internal Medicine; Visit Provider Nurse Practitioner Family
DX: E11.65 Type 2 diabetes mellitus with hyperglycemia (principal)
CPT/HCPCS: 80053; 82985; 83036

== ENCOUNTER 2021-01-11 01:40 | Outpatient (CLI) | payer MEDICARE, SELFPAY ==
[2021-01-11 14:55] LABS: Hemoglobin A1C 6.8 % (<5.7)
[2021-01-11 16:41] LABS: ALT 27 U/L (14-59); AST 19 U/L (15-37); Albumin 3.7 g/dL (3.4-5.0); Alkaline Phosphatase 79 U/L (46-116); Anion Gap 9.6 mmol/L (3-11); BUN 26 mg/dL (7-18); Bilirubin, Total 0.7 mg/dL (0.2-1.0); CO2 29.4 mmol/L (21.0-32.0); CREATININE 1.2 mg/dL (0.55-1.02); Calcium 9.3 mg/dL (8.5-10.1); Chloride 105 mmol/L (98-107); Estimated GFR 44.29 (mL/min/1.73m2); Glucose 111 mg/dL (74-106); Potassium 3.8 mmol/L (3.5-5.1); Sodium 144 mmol/L (136-145); TSH 1.45 uIU/mL (0.36-3.74)
[2021-01-11 19:38] LABS: Calculated LDL 90 mg/dL (<100); Cholesterol 172 mg/dL (<200); HDL Cholesterol 52 mg/dL (40-60); Triglyceride 151 mg/dL (<150)
[2021-01-15 08:49] LABS: Fructosamine 280 mcmol/L (200 - 285)
== END 2021-01-11 01:41 | disposition home or self-care (01) ==
LOC: LBO 01:40
PROVIDERS: PCP Internal Medicine; Visit Provider Internal Medicine Endocrinology, Diabetes & Metabolism
DX: E11.65 Type 2 diabetes mellitus with hyperglycemia (principal)
CPT/HCPCS: 36415; 80053; 80061; 82985; 83036; 84443

== ENCOUNTER 2021-01-31 10:39 | Outpatient (REF) | payer MEDICARE, SELFPAY ==
[2021-01-31 15:08] LABS: Abs Immature Grans 0.01 10^3/uL (0.0-0.06); Absolute Basophil Count 0.03 10^3/uL (0.0-0.2); Absolute Eosinophil Count 0.26 10^3/uL (0.0-0.7); Absolute Lymphocyte Count 0.89 10^3/uL (1.2-3.4); Absolute Monocyte Count 0.27 10^3/uL (0.1-0.8); Absolute Neutrophil Count 3.01 10^3/uL (1.2-6.7); Basophils % 0.7; Eosinophils % 5.8; HCT 39.5 % (36.0-46.0); HGB 13.4 g/dL (11.2-15.7); Immature Grans % 0.2; Lymphocytes % 19.9; MCH 29.2 pg (27.0-33.0); MCHC 33.9 % (32.0-36.0); MCV 86.1 fL (80-95); MPV 9.7 fL (8.0-11.0); Neutrophils % 67.4; Nucleated RBC 0 %; RBC 4.59 10^6/uL (3.93-5.22); RDW 12.9 % (11.7-14.6); RDW-SD 40.1 fL; WBC 4.47 10^3/uL (4.4-10.8)
[2021-01-31 16:01] LABS: Platelet Count 93 10^3/uL (130-400)
[2021-01-31 16:02] LABS: Diff Comment PLT Morph Reviewed; RBC Morphology Normal
[2021-01-31 16:13] LABS: Iron 73 ug/dL (50-170); Total Iron Binding Capacity 284 ug/dL (250-450); Transferrin Sat 26 % (15-50)
== END 2021-01-31 10:40 | disposition home or self-care (01) ==
LOC: NCHCN 10:39
PROVIDERS: PCP Internal Medicine; Visit Provider Nurse Practitioner Family
DX: D69.6 Thrombocytopenia, unspecified (principal); E11.9 Type 2 diabetes mellitus without complications; N28.9 Disorder of kidney and ureter, unspecified; D72.819 Decreased white blood cell count, unspecified; E78.5 Hyperlipidemia, unspecified
CPT/HCPCS: 83540; 83550; 85025

== ENCOUNTER 2021-02-15 04:00 | Outpatient (CLI) | payer MEDICARE, SELFPAY ==
--- NOTE | 2021-02-15 | DI.MAMMO_ITS ---
Exam(s) MAMMO SCREENING EXAM: MAMMO SCREENING CLINICAL HISTORY: SCREENING, FAMILY H/O BREAST CA,Z12.31 TECHNIQUE: Bilateral full field digital CC and MLO mammographic images were obtained with 3D tomosyn thesis and utilizing computer aided detection (CAD). COMPARISON: Available for comparison. FINDINGS: Masses/Architectural Distortion: None seen. Microcalcifications: No suspicious pleomorphic-type are seen. Skin Thickening/Nipple Retraction: None. IMPRESSION: 1. No significant interval change with no specific features of malignancy noted. 2. Unless there is more urgent need, screening mammography is recommended, as per [employer] guidelines. BI-RADS Category 1 - Negative Breast Density - Category B - Scattered areas of fibroglandular density Breast density category C or D implies that the patient has dense breast tissue. Dense breast tissue is very common and is not abnormal but dense breast tissue can make it harder to find cancer on a ma mmogram. Also, dense breast tissue may increase their breast cancer risk. This information about the result of the mammogram report was provided to the patient to raise their awareness. Use this report when you speak with the patient about their risks for breast cancer, which includes their family hist ory. At that time, you may recommend for more screening tests (Ultrasound or MRI) as they might be us eful based on their risk. A negative radiographic report should not delay biopsy if a dominant or clinically suspicious mass is present. Up to ten percent of cancers are not identified on mammography. A negative report may reinforce clinical impression. Adenosis and dense breasts may obscure an underlying neoplasm. False positive reports average 6 to 10%. Patient will receive a letter notifying them of these results.
== END 2021-02-15 04:20 ==
PROVIDERS: PCP Internal Medicine; Visit Provider Nurse Practitioner Family
DX: Z12.31 Encounter for screening mammogram for malignant neoplasm of breast (principal); Z80.3 Family history of malignant neoplasm of breast
CPT/HCPCS: 77063; 77067

== ENCOUNTER 2021-08-02 01:39 | Outpatient (CLI) | payer MEDICARE, SELFPAY ==
--- NOTE | 2021-08-02 | DI.US_ITS ---
Exam(s) US ABDOMEN EXAM: US ABDOMEN CLINICAL HISTORY: THROMBOCYTOPENIA D69.6 ANEMIA D50.9,ACCESS LIVER AND SPLEEN W/MEASUREMENTS TECHNIQUE: Ultrasound abdomen performed using standard protocol. COMPARISON: No exams were available for comparison FINDINGS: ABDOMINAL AORTA AND IVC: Visualized portions normal caliber. PANCREAS: Normal where visualized. LIVER: Normal. Hepatopedal flow in the Portal Vein. The liver measures 14 cm long. GALLBLADDER:Status post cholecystectomy. BILIARY SYSTEM: Common bile duct measures < 7 mm. No intrahepatic biliary ductal dilation. KIDNEYS: Kidneys are symmetric in size. No evidence of renal calculi. No evidence of hydronephrosis. No renal mass or cyst identified. SPLEEN: The spleen measures 13.6 cm long. ASCITES: None seen. IMPRESSION: 1. Mild splenomegaly. 2. Status post cholecystectomy. No biliary ductal dilatation. DATA REPOSITORY:
== END 2021-08-02 01:59 ==
PROVIDERS: PCP Internal Medicine; Visit Provider Internal Medicine Hematology & Oncology
DX: D69.6 Thrombocytopenia, unspecified (principal); D50.9 Iron deficiency anemia, unspecified; R16.1 Splenomegaly, not elsewhere classified; Z90.49 Acquired absence of other specified parts of digestive tract
CPT/HCPCS: 76700

== ENCOUNTER 2021-08-02 12:22 | Outpatient (REF) | payer MEDICARE, SELFPAY ==
[2021-08-02 15:16] LABS: ALT 36 U/L (14-59); AST 26 U/L (15-37); Albumin 3.7 g/dL (3.4-5.0); Alkaline Phosphatase 92 U/L (46-116); Anion Gap 10.1 mmol/L (3-11); BUN 22 mg/dL (7-18); Bilirubin, Total 0.7 mg/dL (0.2-1.0); CO2 27.9 mmol/L (21.0-32.0); CREATININE 1.1 mg/dL (0.55-1.02); Calcium 9.6 mg/dL (8.5-10.1); Chloride 103 mmol/L (98-107); Estimated GFR 48.96 (mL/min/1.73m2); Glucose 125 mg/dL (74-106); Magnesium 1.8 mg/dL (1.8-2.4); Potassium 3.8 mmol/L (3.5-5.1); Sodium 141 mmol/L (136-145); Total Protein 7.1 g/dL (6.4-8.2)
[2021-08-02 15:17] LABS: Iron 81 ug/dL (50-170); Total Iron Binding Capacity 282 ug/dL (250-450); Transferrin Sat 29 % (15-50)
[2021-08-02 15:49] LABS: Ferritin 85 ng/mL (8-252)
== END 2021-08-02 12:23 | disposition home or self-care (01) ==
LOC: NCHCN 12:22
PROVIDERS: PCP Internal Medicine; Visit Provider Nurse Practitioner Family
DX: M25.59 Pain in other specified joint (principal); E11.9 Type 2 diabetes mellitus without complications; I10 Essential (primary) hypertension; E83.42 Hypomagnesemia; N28.9 Disorder of kidney and ureter, unspecified; R42 Dizziness and giddiness
CPT/HCPCS: 80053; 82728; 83540; 83550; 83735

== ENCOUNTER 2021-08-07 12:48 | Outpatient (CLI) | payer MEDICARE, SELFPAY ==
[2021-08-07 09:21] LABS: Abs Immature Grans 0.01 10^3/uL (0.0-0.06); Absolute Basophil Count 0.02 10^3/uL (0.0-0.2); Absolute Eosinophil Count 0.14 10^3/uL (0.0-0.7); Absolute Lymphocyte Count 0.86 10^3/uL (1.2-3.4); Absolute Neutrophil Count 2.67 10^3/uL (1.2-6.7); Basophils % 0.5; Eosinophils % 3.6; HCT 38.7 % (36.0-46.0); HGB 12.9 g/dL (11.2-15.7); Immature Grans % 0.3; Lymphocytes % 22.1; MCH 28.6 pg (27.0-33.0); MCHC 33.3 % (32.0-36.0); MCV 85.8 fL (80-95); MPV 8.8 fL (8.0-11.0); Monocytes % 5.1; Neutrophils % 68.4; Nucleated RBC 0 %; RBC 4.51 10^6/uL (3.93-5.22); RDW 13.5 % (11.7-14.6); RDW-SD 42.3 fL
[2021-08-07 09:39] LABS: Platelet Count 78 10^3/uL (130-400)
== END 2021-08-07 12:49 | disposition home or self-care (01) ==
LOC: LBO 12:50
PROVIDERS: PCP Internal Medicine; Visit Provider Internal Medicine Hematology & Oncology
DX: D50.9 Iron deficiency anemia, unspecified (principal)
CPT/HCPCS: 36415; 85025

== ENCOUNTER 2021-11-15 03:00 | Outpatient (CLI) | payer MEDICARE, SELFPAY ==
[2021-11-15 12:11] LABS: Abs Immature Grans 0.01 10^3/uL (0.0-0.06); Absolute Basophil Count 0.03 10^3/uL (0.0-0.2); Absolute Eosinophil Count 0.36 10^3/uL (0.0-0.7); Absolute Lymphocyte Count 0.86 10^3/uL (1.2-3.4); Absolute Monocyte Count 0.21 10^3/uL (0.1-0.8); Absolute Neutrophil Count 2.94 10^3/uL (1.2-6.7); Basophils % 0.7; Eosinophils % 8.2; HCT 36.7 % (36.0-46.0); HGB 12.3 g/dL (11.2-15.7); Immature Grans % 0.2; Lymphocytes % 19.5; MCH 28.9 pg (27.0-33.0); MCHC 33.5 % (32.0-36.0); MCV 86 fL (80-95); MPV 9.1 fL (8.0-11.0); Monocytes % 4.8; Neutrophils % 66.6; RBC 4.26 10^6/uL (3.93-5.22); RDW-SD 43.2 fL; WBC 4.41 10^3/uL (4.4-10.8)
[2021-11-15 12:30] LABS: Hemoglobin A1C 6.9 % (<5.7)
[2021-11-15 12:46] LABS: Platelet Count 98 10^3/uL (130-400)
[2021-11-15 13:17] LABS: ALT 36 U/L (14-59); AST 28 U/L (15-37); Albumin 3.6 g/dL (3.4-5.0); Alkaline Phosphatase 99 U/L (46-116); Anion Gap 8.4 mmol/L (3-11); BUN 16 mg/dL (7-18); Bilirubin, Total 0.8 mg/dL (0.2-1.0); CO2 30.6 mmol/L (21.0-32.0); CREATININE 1.2 mg/dL (0.55-1.02); Calcium 9.1 mg/dL (8.5-10.1); Chloride 102 mmol/L (98-107); Estimated GFR 44.16 (mL/min/1.73m2); Glucose 171 mg/dL (74-106); Potassium 4.1 mmol/L (3.5-5.1); Sodium 141 mmol/L (136-145); Total Protein 7.2 g/dL (6.4-8.2)
== END 2021-11-15 03:01 | disposition home or self-care (01) ==
PROVIDERS: Internal Medicine Endocrinology, Diabetes & Metabolism; PCP Internal Medicine; Visit Provider Internal Medicine Hematology & Oncology
DX: D50.9 Iron deficiency anemia, unspecified (principal); E11.9 Type 2 diabetes mellitus without complications
CPT/HCPCS: 36415; 80053; 83036; 85025

== ENCOUNTER 2022-02-10 09:57 | Outpatient (CLI) | payer MEDICARE, SELFPAY ==
[2022-02-10 11:27] LABS: Abs Immature Grans 0.01 10^3/uL (0.0-0.06); Absolute Basophil Count 0.03 10^3/uL (0.0-0.2); Absolute Eosinophil Count 0.24 10^3/uL (0.0-0.7); Absolute Lymphocyte Count 1.39 10^3/uL (1.2-3.4); Absolute Monocyte Count 0.33 10^3/uL (0.1-0.8); Absolute Neutrophil Count 3.27 10^3/uL (1.2-6.7); Basophils % 0.6; Eosinophils % 4.6; HCT 38.3 % (36.0-46.0); HGB 13.1 g/dL (11.2-15.7); Immature Grans % 0.2; Lymphocytes % 26.4; MCH 29.2 pg (27.0-33.0); MCHC 34.2 % (32.0-36.0); MCV 86 fL (80-95); MPV 9.3 fL (8.0-11.0); Monocytes % 6.3; Neutrophils % 61.9; RBC 4.48 10^6/uL (3.93-5.22); RDW 13.9 % (11.7-14.6); RDW-SD 43.1 fL; WBC 5.27 10^3/uL (4.4-10.8)
[2022-02-10 11:45] LABS: Platelet Count 96 10^3/uL (130-400)
[2022-02-10 12:03] LABS: ALT 30 U/L (14-59); AST 24 U/L (15-37); Albumin 3.4 g/dL (3.4-5.0); Alkaline Phosphatase 80 U/L (46-116); Anion Gap 8.8 mmol/L (3-11); BUN 27 mg/dL (7-18); Bilirubin, Total 0.7 mg/dL (0.2-1.0); CO2 29.2 mmol/L (21.0-32.0); CREATININE 1.1 mg/dL (0.55-1.02); Calcium 9.3 mg/dL (8.5-10.1); Chloride 104 mmol/L (98-107); Estimated GFR 48.82 (mL/min/1.73m2); Ferritin 96 ng/mL (8-252); Glucose 55 mg/dL (74-106); Potassium 3.2 mmol/L (3.5-5.1); Sodium 142 mmol/L (136-145); Total Protein 7.5 g/dL (6.4-8.2)
[2022-02-10 13:07] LABS: Iron 62 ug/dL (50-170); Total Iron Binding Capacity 310 ug/dL (250-450); Transferrin Sat 20 % (15-50)
== END 2022-02-10 09:58 | disposition home or self-care (01) ==
LOC: LBO 10:01
PROVIDERS: PCP Internal Medicine; Visit Provider Internal Medicine Hematology & Oncology
DX: D69.6 Thrombocytopenia, unspecified (principal); D50.0 Iron deficiency anemia secondary to blood loss (chronic)
CPT/HCPCS: 36415; 80053; 82728; 83540; 83550; 85025

== ENCOUNTER 2022-04-25 12:59 | Outpatient (REF) | payer MEDICARE, SELFPAY ==
[2022-04-25 15:10] LABS: ALT 35 U/L (14-59); AST 31 U/L (15-37); Albumin 3.7 g/dL (3.4-5.0); Alkaline Phosphatase 99 U/L (46-116); Anion Gap 9.2 mmol/L (3-11); BUN 22 mg/dL (7-18); Bilirubin, Total 0.9 mg/dL (0.2-1.0); CO2 27.8 mmol/L (21.0-32.0); CREATININE 1.3 mg/dL (0.55-1.02); Calcium 10.2 mg/dL (8.5-10.1); Chloride 103 mmol/L (98-107); Estimated GFR 43.69 (mL/min/1.73m2); Glucose 89 mg/dL (74-106); Sodium 140 mmol/L (136-145); Total Protein 7.7 g/dL (6.4-8.2)
[2022-04-25 15:42] LABS: Hemoglobin A1C 5.8 % (<5.7)
== END 2022-04-25 13:00 | disposition home or self-care (01) ==
LOC: NCHCN 12:59
PROVIDERS: PCP Internal Medicine; Visit Provider Nurse Practitioner Family
DX: E11.9 Type 2 diabetes mellitus without complications (principal)
CPT/HCPCS: 80053; 83036

== ENCOUNTER 2022-08-05 15:29 | Outpatient (REF) | payer MEDICARE, SELFPAY ==
[2022-08-05 15:54] LABS: Hemoglobin A1C 5.4 % (<5.7)
[2022-08-05 15:59] LABS: Iron 78 ug/dL (50-170); Total Iron Binding Capacity 252 ug/dL (250-450); Transferrin Sat 31 % (15-50)
[2022-08-05 16:37] LABS: Anion Gap 7.3 mmol/L (3-11); BUN 20 mg/dL (7-18); CO2 31.7 mmol/L (21.0-32.0); CREATININE 1.3 mg/dL (0.55-1.02); Calcium 9.7 mg/dL (8.5-10.1); Chloride 103 mmol/L (98-107); Estimated GFR 43.69 (mL/min/1.73m2); Ferritin 100 ng/mL (8-252); Glucose 147 mg/dL (74-106); Magnesium 1.9 mg/dL (1.8-2.4); Potassium 4.4 mmol/L (3.5-5.1); Sodium 142 mmol/L (136-145); Vitamin B12 597 pg/mL (193-986)
== END 2022-08-05 15:30 | disposition home or self-care (01) ==
LOC: NCHCN 15:29
PROVIDERS: PCP Internal Medicine; Visit Provider Nurse Practitioner Family
DX: E11.9 Type 2 diabetes mellitus without complications (principal); E78.5 Hyperlipidemia, unspecified; E88.81 Metabolic syndrome and other insulin resistance; I10 Essential (primary) hypertension; E83.52 Hypercalcemia; R53.83 Other fatigue; N18.32 Chronic kidney disease, stage 3b; R26.89 Other abnormalities of gait and mobility
CPT/HCPCS: 80048; 82607; 82728; 83036; 83540; 83550; 83735; 84443

== ENCOUNTER 2022-08-19 00:22 | Outpatient (CLI) | payer MEDICARE, SELFPAY ==
--- NOTE | 2022-08-19 | DI.MAMMO_ITS ---
Exam(s) MAMMO SCREENING EXAM: MAMMO SCREENING CLINICAL HISTORY: SCREENING, Z12.31. TECHNIQUE: Bilateral full field digital CC and MLO mammographic images were obtained with 3D tomosyn thesis and utilizing computer aided detection (CAD). COMPARISON: Prior mammograms were reviewed. FINDINGS: There has been no significant change in the appearance and distribution of the fibroglandular tissue. There are no CAD designations. There are no new spiculated masses nor malignant appearing microcalcification groups. There is no significant architectural distortion nor skin thickening-retraction. IMPRESSION: No radiographic evidence of malignancy. BI-RADS Category 1 - Negative Breast Density - Category B - Scattered areas of fibroglandular density Breast density Category C or D implies that the patient has dense breast tissue. Dense breast tissue can make it harder to find cancer on a mammogram. Dense breast tissue is also associated with an incr eased risk of breast cancer. This information about the result of the mammogram report was provided to the patient to raise their awareness. Use this report when you speak with the patient about their risks for breast cancer, which includes their family history. At that time, you may recommend additional screening tests (Ultrasoun d or MRI) as these tests may add significant information. A negative radiographic report should not delay biopsy if a dominant or clinically suspicious mass is present. Up to ten percent of cancers are not identified on mammography. A negative report may reinforce clinical impression. Adenosis and dense breasts may obscure an underlying neoplasm. False positive reports average 6 to 10%. Patient will receive a letter notifying them of these results.
== END 2022-08-19 00:42 ==
LOC: DI 00:23
PROVIDERS: PCP Internal Medicine; Visit Provider Nurse Practitioner Family
DX: Z12.31 Encounter for screening mammogram for malignant neoplasm of breast (principal)
CPT/HCPCS: 77063; 77067

== ENCOUNTER → 2022-09-29 13:15 | Outpatient (BNVA) | payer MEDICARE, SELFPAY | PROVIDERS: PCP Nurse Practitioner Family; Referring Provider Nurse Practitioner Family; Visit Provider Nurse Practitioner Adult Health | DX: G31.84 Mild cognitive impairment of uncertain or unknown etiology (principal); G62.9 Polyneuropathy, unspecified; E11.9 Type 2 diabetes mellitus without complications; I10 Essential (primary) hypertension | CPT/HCPCS: 99204 ==

== ENCOUNTER 2022-11-18 03:01 | Outpatient (CLI) | payer OTHER, SELFPAY ==
[2022-11-19 13:22] LABS: Albumin 51.3 % (55.8-66.1); Albumin g/dL 3.5 g/dL (3.6-5.2); Comment (See Note); Monoclonal Spike 3.5 % (None Seen); Monoclonal Spike g/dL 0.2 g/dL (None Seen); Total Protein 6.8 g/dL (6.3-8.2)
[2022-11-19 15:26] LABS: Immunotyping, Serum (See Note)
== END 2022-11-18 03:02 | disposition home or self-care (01) ==
PROVIDERS: PCP Nurse Practitioner Family; Visit Provider Nurse Practitioner Adult Health
DX: G62.89 Other specified polyneuropathies (principal); R41.9 Unspecified symptoms and signs involving cognitive functions and awareness; R29.6 Repeated falls
CPT/HCPCS: 36415; 84165; 86320

== ENCOUNTER 2022-11-25 04:00 | Outpatient (CLI) | payer OTHER, SELFPAY ==
[2022-11-25 12:49] LABS: Abs Immature Grans 0.01 10^3/uL (0.0-0.06); Absolute Basophil Count 0.01 10^3/uL (0.0-0.2); Absolute Eosinophil Count 0.14 10^3/uL (0.0-0.7); Absolute Lymphocyte Count 0.52 10^3/uL (1.2-3.4); Absolute Monocyte Count 0.12 10^3/uL (0.1-0.8); Absolute Neutrophil Count 1.69 10^3/uL (1.2-6.7); Basophils % 0.4; Eosinophils % 5.6; HCT 36.7 % (36.0-46.0); Immature Grans % 0.4; Lymphocytes % 20.9; MCH 28.3 pg (27.0-33.0); MCHC 32.7 % (32.0-36.0); MCV 87 fL (80-95); Monocytes % 4.8; Neutrophils % 67.9; RBC 4.24 10^6/uL (3.93-5.22); RDW 13.9 % (11.7-14.6); RDW-SD 43.8 fL; WBC 2.49 10^3/uL (4.4-10.8)
[2022-11-25 13:26] LABS: Diff Comment Diff Reviewed; Platelet Count 50 10^3/uL (130-400); RBC Morphology Normal
[2022-11-25 13:32] LABS: Iron 59 ug/dL (50-170); Total Iron Binding Capacity 340 ug/dL (250-450); Transferrin Sat 17 % (15-50)
[2022-11-25 13:41] LABS: ALT 32 U/L (14-59); AST 30 U/L (15-37); Albumin 3.1 g/dL (3.4-5.0); Alkaline Phosphatase 125 U/L (46-116); Anion Gap 7.1 mmol/L (3-11); BUN 25 mg/dL (7-18); Bilirubin, Total 0.4 mg/dL (0.2-1.0); CO2 29.9 mmol/L (21.0-32.0); CREATININE 1.1 mg/dL (0.55-1.02); Calcium 9.2 mg/dL (8.5-10.1); Chloride 103 mmol/L (98-107); Estimated GFR 53.06 (mL/min/1.73m2); Ferritin 40 ng/mL (8-252); Glucose 280 mg/dL (74-106); LDH 232 U/L (81-234); Potassium 4.4 mmol/L (3.5-5.1); Sodium 140 mmol/L (136-145); Total Protein 7.4 g/dL (6.4-8.2)
== END 2022-11-25 04:01 | disposition home or self-care (01) ==
LOC: LBO 04:00
PROVIDERS: PCP Nurse Practitioner Family; Visit Provider Internal Medicine Hematology & Oncology
DX: D69.6 Thrombocytopenia, unspecified (principal); D50.0 Iron deficiency anemia secondary to blood loss (chronic)
CPT/HCPCS: 36415; 80053; 82728; 83540; 83550; 83615; 85025

== ENCOUNTER 2022-12-24 02:41 | Outpatient (CLI) | payer OTHER, SELFPAY ==
[2022-12-24 09:27] LABS: Absolute Basophil Count 0.01 10^3/uL (0.0-0.2); Absolute Eosinophil Count 0.13 10^3/uL (0.0-0.7); Absolute Lymphocyte Count 0.68 10^3/uL (1.2-3.4); Absolute Monocyte Count 0.16 10^3/uL (0.1-0.8); Absolute Neutrophil Count 2.09 10^3/uL (1.2-6.7); Basophils % 0.3; Eosinophils % 4.2; HCT 36.1 % (36.0-46.0); HGB 12.1 g/dL (11.2-15.7); Lymphocytes % 22.1; MCH 28.1 pg (27.0-33.0); MCHC 33.5 % (32.0-36.0); MCV 84 fL (80-95); MPV 9.3 fL (8.0-11.0); Monocytes % 5.2; Neutrophils % 68.2; RDW 14.1 % (11.7-14.6); WBC 3.07 10^3/uL (4.4-10.8)
[2022-12-24 10:04] LABS: ALT 35 U/L (14-59); AST 29 U/L (15-37); Albumin 3.3 g/dL (3.4-5.0); Alkaline Phosphatase 114 U/L (46-116); Anion Gap 8.8 mmol/L (3-11); BUN 22 mg/dL (7-18); Bilirubin, Total 0.6 mg/dL (0.2-1.0); CO2 27.2 mmol/L (21.0-32.0); CREATININE 1.1 mg/dL (0.55-1.02); Calcium 9.4 mg/dL (8.5-10.1); Chloride 103 mmol/L (98-107); Estimated GFR 53.06 (mL/min/1.73m2); Glucose 170 mg/dL (74-106); LDH 220 U/L (81-234); Potassium 4.5 mmol/L (3.5-5.1); Sodium 139 mmol/L (136-145); Total Protein 7.5 g/dL (6.4-8.2)
[2022-12-24 10:09] LABS: Iron 85 ug/dL (50-170); Total Iron Binding Capacity 330 ug/dL (250-450); Transferrin Sat 26 % (15-50)
[2022-12-24 10:21] LABS: Platelet Count 62 10^3/uL (130-400)
[2022-12-24 10:22] LABS: Diff Comment Diff Reviewed; RBC Morphology Normal
[2022-12-24 10:39] LABS: Ferritin 37 ng/mL (8-252)
== END 2022-12-24 02:42 | disposition home or self-care (01) ==
LOC: LBO 02:42
PROVIDERS: PCP Nurse Practitioner Family; Visit Provider Internal Medicine Hematology & Oncology
DX: D69.6 Thrombocytopenia, unspecified (principal); D50.0 Iron deficiency anemia secondary to blood loss (chronic)
CPT/HCPCS: 36415; 80053; 82728; 83540; 83550; 83615; 85025

== ENCOUNTER 2023-02-12 10:41 | Outpatient (CLI) | payer OTHER, SELFPAY ==
[2023-02-12 10:30] LABS: Abs Immature Grans 0.01 10^3/uL (0.0-0.06); Absolute Eosinophil Count 0.11 10^3/uL (0.0-0.7); Absolute Lymphocyte Count 0.63 10^3/uL (1.2-3.4); Absolute Monocyte Count 0.14 10^3/uL (0.1-0.8); Absolute Neutrophil Count 2.06 10^3/uL (1.2-6.7); Eosinophils % 3.7; HCT 35.1 % (36.0-46.0); Immature Grans % 0.3; Lymphocytes % 21.4; MCH 28.4 pg (27.0-33.0); MCHC 34.2 % (32.0-36.0); MCV 83 fL (80-95); MPV 8.9 fL (8.0-11.0); Monocytes % 4.7; Neutrophils % 69.9; RBC 4.23 10^6/uL (3.93-5.22); RDW 14.9 % (11.7-14.6); RDW-SD 44.8 fL; WBC 2.95 10^3/uL (4.4-10.8)
[2023-02-12 10:50] LABS: Diff Comment Diff Reviewed; Platelet Count 74 10^3/uL (130-400); RBC Morphology Normal
[2023-02-12 11:10] LABS: Iron 70 ug/dL (50-170); Total Iron Binding Capacity 295 ug/dL (250-450); Transferrin Sat 24 % (15-50)
[2023-02-12 11:14] LABS: ALT 30 U/L (14-59); AST 27 U/L (15-37); Albumin 3.1 g/dL (3.4-5.0); Alkaline Phosphatase 98 U/L (46-116); Anion Gap 9.1 mmol/L (3-11); BUN 20 mg/dL (7-18); Bilirubin, Total 0.7 mg/dL (0.2-1.0); CO2 25.9 mmol/L (21.0-32.0); CREATININE 1.1 mg/dL (0.55-1.02); Chloride 100 mmol/L (98-107); Estimated GFR 53.06 (mL/min/1.73m2); Ferritin 49 ng/mL (8-252); Glucose 319 mg/dL (74-106); Potassium 3.9 mmol/L (3.5-5.1); Sodium 135 mmol/L (136-145); Total Protein 7.1 g/dL (6.4-8.2)
[2023-02-12 11:29] LABS: LDH 214 U/L (81-234)
== END 2023-02-12 10:42 | disposition home or self-care (01) ==
LOC: LBO 10:41
PROVIDERS: PCP Nurse Practitioner Family; Visit Provider Internal Medicine Hematology & Oncology
DX: D69.6 Thrombocytopenia, unspecified (principal); D47.2 Monoclonal gammopathy; D72.819 Decreased white blood cell count, unspecified; D50.0 Iron deficiency anemia secondary to blood loss (chronic)
CPT/HCPCS: 36415; 80053; 82728; 83540; 83550; 83615; 85025

== ENCOUNTER 2023-03-17 17:09 | Outpatient (REF) | payer OTHER, SELFPAY ==
[2023-03-17 17:16] LABS: Absolute Basophil Count 0.01 10^3/uL (0.0-0.2); Absolute Eosinophil Count 0.12 10^3/uL (0.0-0.7); Absolute Lymphocyte Count 0.69 10^3/uL (1.2-3.4); Absolute Monocyte Count 0.14 10^3/uL (0.1-0.8); Absolute Neutrophil Count 2.04 10^3/uL (1.2-6.7); Basophils % 0.3; HCT 36.1 % (36.0-46.0); HGB 12.2 g/dL (11.2-15.7); MCH 28.8 pg (27.0-33.0); MCHC 33.8 % (32.0-36.0); MCV 85 fL (80-95); MPV 10.1 fL (8.0-11.0); Monocytes % 4.7; RBC 4.23 10^6/uL (3.93-5.22); RDW 14.7 % (11.7-14.6); RDW-SD 45.9 fL
[2023-03-17 18:29] LABS: Diff Comment Diff Reviewed
[2023-03-17 18:30] LABS: Platelet Count 77 10^3/uL (130-400); RBC Morphology Normal
== END 2023-03-17 17:10 | disposition home or self-care (01) ==
LOC: NCHCN 17:09
PROVIDERS: PCP Nurse Practitioner Family; Visit Provider Nurse Practitioner Family
DX: D50.9 Iron deficiency anemia, unspecified (principal)
CPT/HCPCS: 85025

== ENCOUNTER → 2023-03-31 10:36 | Outpatient (BNVA) | payer OTHER, SELFPAY | PROVIDERS: PCP Nurse Practitioner Family; Referring Provider Nurse Practitioner Family; Visit Provider Nurse Practitioner Adult Health | DX: G47.9 Sleep disorder, unspecified (principal); E11.42 Type 2 diabetes mellitus with diabetic polyneuropathy; I10 Essential (primary) hypertension; G31.84 Mild cognitive impairment of uncertain or unknown etiology | CPT/HCPCS: 99213 ==

== ENCOUNTER 2023-04-14 16:24 | Outpatient (REF) | payer OTHER, SELFPAY ==
[2023-04-14 15:10] LABS: Abs Immature Grans 0.01 10^3/uL (0.0-0.06); Absolute Basophil Count 0.01 10^3/uL (0.0-0.2); Absolute Eosinophil Count 0.13 10^3/uL (0.0-0.7); Absolute Lymphocyte Count 0.73 10^3/uL (1.2-3.4); Absolute Monocyte Count 0.16 10^3/uL (0.1-0.8); Absolute Neutrophil Count 2.18 10^3/uL (1.2-6.7); Basophils % 0.3; HCT 36.3 % (36.0-46.0); HGB 12.3 g/dL (11.2-15.7); Immature Grans % 0.3; Lymphocytes % 22.7; MCH 29.2 pg (27.0-33.0); MCHC 33.9 % (32.0-36.0); MCV 86 fL (80-95); MPV 9.4 fL (8.0-11.0); Neutrophils % 67.7; RBC 4.21 10^6/uL (3.93-5.22); RDW 14.1 % (11.7-14.6); RDW-SD 44.2 fL; WBC 3.22 10^3/uL (4.4-10.8)
[2023-04-14 15:23] LABS: Diff Comment PLT Morph Reviewed; Platelet Count 67 10^3/uL (130-400); RBC Morphology Normal
== END 2023-04-14 16:25 | disposition home or self-care (01) ==
LOC: NCHCN 16:24
PROVIDERS: PCP Nurse Practitioner Family; Visit Provider Nurse Practitioner Family
DX: D50.9 Iron deficiency anemia, unspecified (principal)
CPT/HCPCS: 85025

== ENCOUNTER 2023-05-07 09:21 | Outpatient (REF) | payer OTHER, SELFPAY ==
[2023-05-07 14:22] LABS: Absolute Basophil Count 0.03 10^3/uL (0.0-0.2); Absolute Eosinophil Count 0.12 10^3/uL (0.0-0.7); Absolute Lymphocyte Count 0.76 10^3/uL (1.2-3.4); Absolute Neutrophil Count 3.15 10^3/uL (1.2-6.7); Basophils % 0.7; Eosinophils % 2.8; HCT 37.9 % (36.0-46.0); Lymphocytes % 17.8; MCH 29.8 pg (27.0-33.0); MCHC 34.3 % (32.0-36.0); MCV 87 fL (80-95); MPV 9.4 fL (8.0-11.0); Monocytes % 4.7; RBC 4.36 10^6/uL (3.93-5.22); RDW 13.7 % (11.7-14.6); RDW-SD 43.4 fL; WBC 4.26 10^3/uL (4.4-10.8)
[2023-05-07 14:48] LABS: Platelet Count 84 10^3/uL (130-400)
[2023-05-07 14:49] LABS: Diff Comment PLT Morph Reviewed; RBC Morphology Normal
== END 2023-05-07 09:22 | disposition home or self-care (01) ==
LOC: NCHCN 09:21
PROVIDERS: PCP Nurse Practitioner Family; Visit Provider Nurse Practitioner Family
DX: D50.9 Iron deficiency anemia, unspecified (principal)
CPT/HCPCS: 85025

== ENCOUNTER 2023-06-02 14:25 | Outpatient (REF) | payer OTHER, SELFPAY ==
--- NOTE | 2023-06-02 07:40 | SKI_PTH ---
PATIENT: Paola Rodriguez LOC: [facility] U#:[id number] AGE/SX: 72/F ROOM: RE06/02/[address]: Damon Meng MD : 1950 BED: DIS: 06/02/2023 SPEC #: [id number] RECD: 06/02/23 15:57 STATUS: ABIMAEL REQ #: [id number] NELIDA: 06/02/23 07:[address]: Damon Meng DEPT: Surgical Specimen RECD BY: Christiane Allred ENTERED: 06/02/23 15:58 SP TYPE: JAMES PARMAR DR: Zelda Billings Tissues: 1 - SKIN BIOPSY(SHAVE/PUNCH) Procedures: SKIN LEVEL 4 Comments: [id number]
== END 2023-06-02 14:26 | disposition home or self-care (01) ==
LOC: LBN 14:25
PROVIDERS: PCP Nurse Practitioner Family; Visit Provider Otolaryngology
DX: C44.42 Squamous cell carcinoma of skin of scalp and neck
CPT/HCPCS: 88305

== ENCOUNTER 2023-06-18 13:30 | Outpatient (REF) | payer OTHER, SELFPAY ==
[2023-06-18 14:46] LABS: Abs Immature Grans 0.01 10^3/uL (0.0-0.06); Absolute Basophil Count 0.02 10^3/uL (0.0-0.2); Absolute Eosinophil Count 0.11 10^3/uL (0.0-0.7); Absolute Lymphocyte Count 0.78 10^3/uL (1.2-3.4); Absolute Monocyte Count 0.19 10^3/uL (0.1-0.8); Absolute Neutrophil Count 3.03 10^3/uL (1.2-6.7); Basophils % 0.5; Eosinophils % 2.7; HCT 41.8 % (36.0-46.0); HGB 14.3 g/dL (11.2-15.7); Immature Grans % 0.2; Lymphocytes % 18.8; MCH 29.7 pg (27.0-33.0); MCHC 34.2 % (32.0-36.0); MCV 87 fL (80-95); MPV 9.8 fL (8.0-11.0); Monocytes % 4.6; Neutrophils % 73.2; RBC 4.81 10^6/uL (3.93-5.22); RDW-SD 44.2 fL; WBC 4.14 10^3/uL (4.4-10.8)
[2023-06-18 15:23] LABS: Diff Comment PLT Morph Reviewed; Platelet Count 94 10^3/uL (130-400); RBC Morphology Normal
== END 2023-06-18 13:31 | disposition home or self-care (01) ==
LOC: NCHCN 13:30
PROVIDERS: PCP Nurse Practitioner Family; Visit Provider Nurse Practitioner Family
DX: D50.9 Iron deficiency anemia, unspecified (principal)
CPT/HCPCS: 85025

== ENCOUNTER 2023-07-23 11:39 | Emergency (ER) | payer OTHER, SELFPAY ==
[2023-07-23] VITALS (27 sets, daily range): BP systolic 119–153; BP diastolic 53–66; PULSE 88–102; RESP 14–26; TEMP 36.4; O2SAT 85–100
--- NOTE | 2023-07-23 12:22 | W.ED.GENAD ---
HPI General Mode of arrival: ambulatory (With a walker). Date/Time Provider Initiated Documentation: 07/23/23 12:09. Limitations to Documentation: no limitations. Information obtained by: patient, RN notes reviewed and old records reviewed. HPI Narrative: 72-year-old female presents to the ER with a chief complaint of vomiting x 1 week. She has been unable to keep down her medications for the last 2 days. She is also complaining of some generalized abdominal pain. Denies any diarrhea or falls denies any head injuries. She reports that she has been slightly confused and unsteady on her feet. No focal neurodeficits noted. She answers all my questions today to satisfactory ability. She does have a past medical history of hypertension and diabetes takes Ozempic once a week, anemia, sleep apnea chronic kidney disease, anxiety, iron deficiency anemia. Related Data Home Medications Medication Instructions Recorded Confirmed atorvastatin 40 mg tablet 40 mg PO HS 01/01/17 07/23/23 losartan 25 mg tablet 25 mg PO DAILY 01/01/17 07/23/23 potassium chloride 20 mEq 20 meq PO BID 01/01/17 07/23/23 tablet,extended release (K-Tab) aspirin 81 mg tablet,delayed 81 mg PO DAILY #30 tab-caps 01/07/17 07/23/23 release (Aspir-) blood-glucose meter ([employer] 06/11/17 06/09/23 UltraMini kit) bupropion HCl 300 mg 24 hr tablet, 300 mg PO DAILY 06/11/17 07/23/23 extended release docusate sodium 100 mg capsule 100 mg PO DAILY 05/11/18 07/23/23 fluoxetine 10 mg capsule 10 mg PO DAILY 09/18/22 07/23/23 psyllium husk 0.4 gram capsule 0.4 g PO DAILY PRN 09/18/22 07/23/23 (Metamucil) trazodone 50 mg tablet 50 mg PO QHS PRN 03/31/23 07/23/23 famotidine 20 mg tablet 20 mg PO DAILY 05/19/23 07/23/23 magnesium oxide 500 mg capsule 500 mg PO BID 05/19/23 07/23/23 semaglutide 1 mg/dose (4 mg/3 mL) 1 mg subcut QWEEK 05/19/23 07/23/23 subcutaneous pen injector (Ozempic) Allergies Allergy/AdvReac Type Severity Reaction Status Date / Time metformin Allergy Verified 07/23/23 11:47 Sulfa (Sulfonamide Allergy Verified 07/23/23 11:47 Antibiotics) lisinopril AdvReac Intermediate cough Verified 07/23/23 11:47 General Stated Complaint: Abd Prob ARTURO: 3 Course Vital Signs Vital signs: Vital Signs Temperature 36.4 C 07/23/23 11:48 Pulse 102 H 07/23/23 11:48 Respiratory Rate 18 07/23/23 11:48 Blood Pressure 153/64 H 07/23/23 11:48 Pulse Oximetry 98 07/23/23 11:48 Temperature 36.4 C 07/23/23 11:48 Temperature Source Oral 07/23/23 11:48 Pulse 102 H 07/23/23 11:48 Respiratory Rate 18 07/23/23 11:48 Respiratory Effort Normal 07/23/23 12:04 Blood Pressure 153/64 H 07/23/23 11:48 Blood Pressure Position Supine 07/23/23 11:48 Pulse Oximetry 98 07/23/23 11:48 Oxygen Delivery Method Room Air 07/23/23 11:48 Oxygen Flow Rate 0 07/23/23 11:48 Pain Level 5 07/23/23 11:48 Comment all over abd 07/23/23 11:48 Medical Decision Making 72-year-old female presents to the ER with a chief complaint of vomiting x 1 week. She has been unable to keep down her medications for the last 2 days. She is also complaining of some generalized abdominal pain. Denies any diarrhea or falls denies any head injuries. She reports that she has been slightly confused and unsteady on her feet. No focal neurodeficits noted. She answers all my questions today to satisfactory ability. She does have a past medical history of hypertension and diabetes takes Ozempic once a week, anemia, sleep apnea chronic kidney disease, anxiety, iron deficiency anemia. Workup ordered including CBC CMP, lipase, urinalysis, normal saline 500 cc bolus and [address] abdomen pelvis ordered. Differential diagnosis includes but not limited to small bowel obstruction, gastroenteritis, viral illness, appendicitis. Patient does have a past medical history surgical history of cholecystectomy. And left hip replacement. 1430: On patient reevaluation she reports she is feeling better. She has received 500 cc normal saline bolus. Will p.o. challenge with magnesium supplement and water. I did discuss her labs which she is aware of her thrombocytopenia and iron deficiency anemia which she is followed by hematology. This is at her baseline. Potassium is also slightly low at 3.3. Magnesium 1.7 which we are given her supplement as noted above, glucose 141 bilirubin 1.3. Urinalysis shows small blood and moderate leukocytes 3-5 RBCs 5-10 WBCs with squamous contamination. Will plan on giving her a small 5-day antibiotic to treat empirically for possible early UTI. She verbalized understanding is in agreement with the plan. She is requesting her son Yuan. Patient able to tolerate p.o. without any further emesis prior to discharge. Patient was given 3 tablets of 4 mg Zofran ODT to take with her home. Patient instructed to follow-up with PCP. This text was generated using [employer] system, please disregard any oddities of phrase or misspellings. Medical Records Medical records reviewed: Yes I reviewed the patient's medical records. Imaging Data Radiologic Study: Imaging: CT Scan Radiologist's impression: EXAM: CT ABDOMEN PELVIS W CLINICAL HISTORY: Vomiting, Abd Pain, R/O Obstruction. TECHNIQUE: Imaging Protocol: Axial computed tomography images with coronal and sagittal reformatted images were created and reviewed CONTRAST MATERIAL: Intravenous: Omnipaque 350 Contrast volume:100 ml Oral: / no COMPARISON: US US ABDOMEN from 08/02/2021 FINDINGS: ABDOMEN and PELVIS: Lung Bases: No acute findings. Liver: Normal density. No measurable mass. Gallbladder and biliary tract: Status post cholecystectomy. Multiple clips in gallbladder fossa create artifact. Pancreas: Normal density. No abnormal calcifications or inflammatory process. No evidence of mass. Spleen: Normal. Kidneys: Normal size, contour and axis. No radiodense stones. No obstructive uropathy. No suspicious masses seen. Adrenal glands: No masses seen. Vasculature: Abdominal aorta non-dilated. Soft tissues: Unremarkable. Bladder: No gross wall thickening. No calculi.No focal mass. Bowel: Small hiatal hernia. Diverticulosis. No evidence of diverticulitis. Moderate quantity of stool. No obstruction. No bowel wall thickening. Appendix normal. Peritoneal cavity: No ascites. No focal collection or mesenteric inflammatory response. Bones: Left hip prosthesis. Degenerative changes in the lumbar spine. Reproductive organs: Within normal limits. Lymph nodes: Unremarkable. IMPRESSION:: No acute abnormality in the abdomen or pelvis. Lab Data Lab results reviewed: Yes I reviewed the patient's lab results. Labs: Laboratory Tests Range/Units 07/23/23 07/23/23 12:00 13:45 WBC (4.4-10.8) 10^3/uL 3.06 L RBC (3.93-5.22) 10^6/uL 4.37 Hgb (11.2-15.7) g/dL 13.2 Hct (36.0-46.0) % 37.5 MCV (80-95) fL 86 MCH (27.0-33.0) pg 30.2 MCHC (32.0-36.0) % 35.2 RDW (11.7-14.6) % 13.4 Plt Count (130-400) 10^3/uL 75 L MPV (8.0-11.0) fL 8.8 Immature Gran % 0.3 Neutrophils % 67.7 Lymphocytes % 22.5 Monocytes % 4.9 Eosinophils % 3.9 Basophils % 0.7 Nucleated RBC % (0.0-0.3) % 0.0 Absolute Neutrophils (1.2-6.7) 10^3/uL 2.07 Absolute Lymphocytes (1.2-3.4) 10^3/uL 0.69 L Absolute Monocytes (0.1-0.8) 10^3/uL 0.15 Absolute Eosinophils (0.0-0.7) 10^3/uL 0.12 Absolute Basophils (0.0-0.2) 10^3/uL 0.02 RBC Morphology Normal Sodium (136-145) mmol/L 142 Potassium (3.5-5.1) mmol/L 3.3 L Chloride (98-107) mmol/L 104 Carbon Dioxide (21.0-32.0) mmol/L 27.5 Anion Gap (3-11) mmol/L 10.5 BUN (7-18) mg/dL 17 Creatinine (0.55-1.02) mg/dL 1.0 Est GFR (CKD-EPI 2020) (mL/min/1.73m2) 59.49 Glucose (74-106) mg/dL 141 H Calcium (8.5-10.1) mg/dL 9.7 Magnesium (1.8-2.4) mg/dL 1.7 L Total Bilirubin (0.2-1.0) mg/dL 1.3 H AST (15-37) U/L 31 ALT (14-59) U/L 33 Alkaline Phosphatase (46-116) U/L 104 Total Protein (6.4-8.2) g/dL 7.1 Albumin (3.4-5.0) g/dL 3.4 Lipase (16-77) U/L 93 H Urine Color (Yellow) Yellow Urine Clarity (Clear) Clear Urine pH (5-8) 7.0 Ur Specific [place] (1.005-1.025) 1.010 Urine Protein (Negative) mg/dL Negative Urine Ketones (Negative) mg/dL Negative Urine Blood (Negative) Small H Urine Nitrite (Negative) Negative Urine Bilirubin (Negative) Negative Urine Urobilinogen (Up to 0.2) mg/dL 1.0 H Ur Leukocyte Esterase (Negative) Moderate H Urine RBC (0-2) HPF 3-5 H Urine WBC (0-5) HPF 5-10 Ur Epithelial Cells (Negative) HPF Moderate Urine Crystals (Negative) HPF Negative Urine Bacteria (Negative) HPF Few Urine Casts (Negative) LPF Negative Urine Mucus (Negative) Negative Ur Culture Indicated? No/Sq. Contamination Urine Glucose (Negative) mg/dL Negative Quality:SDOH Health Related Social Needs: No Data to Display PFSH All Active Problems (Updated 07/23/23 @ 14:33 by Jayashree Cornell NP) UTI (urinary tract infection) (Acute) Nausea & vomiting (Acute) Scalp lesion (Acute) Peripheral neuropathy (Acute) Mild cognitive impairment (Acute) Encounter for screening colonoscopy (Acute) Current visit YES Essential tremor (Acute 07/15/17) Hypertension (Acute) Postoperative anemia (Acute) Depression (Acute) Insomnia (Acute) Insulin dependent diabetes mellitus (Acute) Medical History Obstructive sleep apnea Iron deficiency anemia Skin lesion of scalp Adjustment disorder with mixed anxiety and depressed mood Monoclonal gammopathy Hypomagnesemia History of neck pain Acute joint pain Dizziness Aphasia Memory loss Type 2 diabetes mellitus Metabolic syndrome Chronic kidney disease Loss of balance Hypercalcemia Constipation Fatigue Frequent falls Sleep apnea Hypertension Microcytic anemia Depression Diabetes Surgical History Status post left hip replacement DOS: 01/12/2017 Dr. Coronado H/O colonoscopy (05/14/18) dr durham, 1 benign polyp, repeat 10 years Social History Smoking/Tobacco Use Status: Never Smoking risk assessment performed?: Yes Drug use: Never Substance use type: does not use Discharge Plan Disposition Patient Disposition: Home Condition: Improving Discharge Details Clinical Impression: Nausea & vomiting, UTI (urinary tract infection) Primary Care Provider: Zelda Billings ED Provider: Jayashree Cornell Home Meds and New Rx's Prescriptions: Continued fluoxetine 10 mg capsule 10 mg PO DAILY psyllium husk [Metamucil] 0.4 gram capsule 0.4 g PO DAILY PRN trazodone 50 mg tablet 50 mg PO QHS PRN Ozempic 1 mg/dose (4 mg/3 mL) pen injector 1 mg subcut QWEEK magnesium oxide 500 mg capsule 500 mg PO BID famotidine 20 mg tablet 20 mg PO DAILY aspirin [Aspir-81] 81 MG tablet,delayed release (DR/EC) 81 mg PO DAILY Qty: 30 (DME) blood-glucose meter [[employer] UltraMini] 1 EACH kit 1 ea Miscellaneous DAILY bupropion HCl 300 MG tablet extended release 24 hr 300 mg PO DAILY docusate sodium 100 mg Capsule 100 mg PO DAILY atorvastatin 40 MG tablet 40 mg PO HS losartan 25 MG tablet 25 mg PO DAILY potassium chloride [K-Tab] 20 MEQ tablet extended release 20 meq PO BID Discharge Instructions Instructions: Urinary Tract Infection in Women (ED), Acute Nausea and Vomiting (ED) Additional Instructions: Please take the nausea medication up to 3 times daily as needed. Increase oral fluids with electrolytes. You may use sugar-free electrolyte Powerade or similar. Follow up with primary care provider in 3-5 days. Return to ED sooner if any worsening or concerns. Increase oral fluids. No evidence of bowel obstruction or serious infection noted on the CT today. Referrals: Zelda Billings [Primary Care Provider] - 3 days Discharge Data Discharge Date/Time-TO BE ENTERED AT DEPARTURE: 07/23/23 15:22
[2023-07-23 12:27] LABS: Abs Immature Grans 0.01 10^3/uL (0.0-0.06); Absolute Basophil Count 0.02 10^3/uL (0.0-0.2); Absolute Eosinophil Count 0.12 10^3/uL (0.0-0.7); Absolute Lymphocyte Count 0.69 10^3/uL (1.2-3.4); Absolute Monocyte Count 0.15 10^3/uL (0.1-0.8); Absolute Neutrophil Count 2.07 10^3/uL (1.2-6.7); Basophils % 0.7; Eosinophils % 3.9; HCT 37.5 % (36.0-46.0); HGB 13.2 g/dL (11.2-15.7); Immature Grans % 0.3; Lymphocytes % 22.5; MCH 30.2 pg (27.0-33.0); MCHC 35.2 % (32.0-36.0); MCV 86 fL (80-95); MPV 8.8 fL (8.0-11.0); Monocytes % 4.9; Neutrophils % 67.7; RBC 4.37 10^6/uL (3.93-5.22); RDW 13.4 % (11.7-14.6); RDW-SD 41.8 fL; WBC 3.06 10^3/uL (4.4-10.8)
[2023-07-23 12:35] LABS: Diff Comment Diff Reviewed; Platelet Count 75 10^3/uL (130-400); RBC Morphology Normal
[2023-07-23 12:41] LABS: ALT 33 U/L (14-59); AST 31 U/L (15-37); Albumin 3.4 g/dL (3.4-5.0); Alkaline Phosphatase 104 U/L (46-116); Anion Gap 10.5 mmol/L (3-11); BUN 17 mg/dL (7-18); Bilirubin, Total 1.3 mg/dL (0.2-1.0); CO2 27.5 mmol/L (21.0-32.0); Calcium 9.7 mg/dL (8.5-10.1); Chloride 104 mmol/L (98-107); Estimated GFR 59.49 (mL/min/1.73m2); Glucose 141 mg/dL (74-106); Lipase 93 U/L (16-77); Magnesium 1.7 mg/dL (1.8-2.4); Potassium 3.3 mmol/L (3.5-5.1); Sodium 142 mmol/L (136-145); Total Protein 7.1 g/dL (6.4-8.2)
[2023-07-23] MEDS: Normal Saline 500 ML IV (12:45)
[2023-07-23] MEDS: Ondansetron 4 MG/2 ML VIAL 2 MG IVP (12:45)
--- NOTE | 2023-07-23 12:53 | NUR.NOTE ---
Called to leave update PT family per PT request. Family did not answer message left. Nursing Note:
[2023-07-23] MEDS: Omnipaque 350 MG/ML 100 ML BTL IJ (13:19)
[2023-07-23] MEDS: Normal Saline - Diluent 50 ML VIAL IJ (13:21)
--- NOTE | 2023-07-23 13:22 | DI.CT_ITS ---
Exam(s) CT ABDOMEN PELVIS W EXAM: CT ABDOMEN PELVIS W CLINICAL HISTORY: Vomiting, Abd Pain, R/O Obstruction. TECHNIQUE: Imaging Protocol: Axial computed tomography images with coronal and sagittal reformatted images were created and reviewed CONTRAST MATERIAL: Intravenous: Omnipaque 350 Contrast volume:100 ml Oral: / no COMPARISON: US US ABDOMEN from 08/02/2021 FINDINGS: ABDOMEN and PELVIS: Lung Bases: No acute findings. Liver: Normal density. No measurable mass. Gallbladder and biliary tract: Status post cholecystectomy. Multiple clips in gallbladder fossa crea te artifact. Pancreas: Normal density. No abnormal calcifications or inflammatory process. No evidence of mass. Spleen: Normal. Kidneys: Normal size, contour and axis. No radiodense stones. No obstructive uropathy. No suspicious masses seen. Adrenal glands: No masses seen. Vasculature: Abdominal aorta non-dilated. Soft tissues: Unremarkable. Bladder: No gross wall thickening. No calculi.No focal mass. Bowel: Small hiatal hernia. Diverticulosis. No evidence of diverticulitis. Moderate quantity of st ool. No obstruction. No bowel wall thickening. Appendix normal. Peritoneal cavity: No ascites. No focal collection or mesenteric inflammatory response. Bones: Left hip prosthesis. Degenerative changes in the lumbar spine. Reproductive organs: Within normal limits. Lymph nodes: Unremarkable. IMPRESSION:: No acute abnormality in the abdomen or pelvis. RADIATION DOSE DELIVERED: 1,071.77mGy.cm Total DLP DATA REPOSITORY: All CT scans at this facility are submitted to the National Radiology Data Registry (NRDR) Dose Index Registry (DIR) with the [employer] (ACR). RADIATION OPTIMIZATION: All CT scans at this facility use at least one of these dose optimization te chniques: automated exposure control; mA and/or kV adjustment per patient size (includes targeted exa ms where dose is matched to clinical indication); or iterative reconstruction.
[2023-07-23 13:52] LABS: Bilirubin Negative (Negative); Blood Small (Negative); Clarity Clear (Clear); Glucose Negative (Negative); Ketones Negative (Negative); Leukocyte Esterase Moderate (Negative); Nitrite Negative (Negative)
[2023-07-23 13:58] LABS: Bacteria Few HPF (Negative); C & S Indicated? No/Sq. Contamination; Casts Negative LPF (Negative); Crystals Negative HPF (Negative); Epithelial Cells Moderate HPF (Negative); Mucus Negative (Negative)
[2023-07-23] MEDS: Magnesium Oxide 400 MG TAB PO (14:32)
--- NOTE | 2023-07-23 14:44 | NUR.NOTE ---
PT was given 16oz of water. PT was able to drink water without nausea. PT requested more water. Nursing Note:
[2023-07-23] MEDS: Ondansetron O.D.T. 4 MG TABEF, 3 TABS/BTL PO (15:05)
== END 2023-07-23 15:22 | disposition home or self-care (01) ==
PROVIDERS: Emergency Provider Registered Nurse Emergency; PCP Nurse Practitioner Family
DX: R11.2 Nausea with vomiting, unspecified (principal); E11.9 Type 2 diabetes mellitus without complications; I10 Essential (primary) hypertension; Z79.82 Long term (current) use of aspirin; Z90.49 Acquired absence of other specified parts of digestive tract
CPT/HCPCS: 80053; 83690; 96360; 99285; 74177; 81003; 81015; 83735; 85025; 99284; J2405; J3490

== ENCOUNTER 2023-08-02 11:22 | Emergency (ER) | payer OTHER, SELFPAY ==
[2023-08-02] VITALS (15 sets, daily range): BP systolic 100–136; BP diastolic 39–88; PULSE 89–106; RESP 12–29; TEMP 36.5; O2SAT 96–100
--- NOTE | 2023-08-02 11:15 | RT.EKG_ITS ---
APPROVED REPORT Exam: Resting ECG Reason for Exam: Altered Mental Status Patient Location: E HR:103 bpm ECG Measurements Heart Rate 103 AXIS VT 160 P 24 QRSd 91 QRS -36 QT 336 T 116 QTc 440 Conclusion Sinus tachycardia no acute ST changes
--- NOTE | 2023-08-02 11:30 | DI.CT_ITS ---
Exam(s) CT HEAD WO EXAM: CT HEAD WO CLINICAL HISTORY: ams. TECHNIQUE: Imaging Protocol: Axial computed tomography images with coronal and sagittal reformatted images were created and reviewed COMPARISON: No exams were available for comparison FINDINGS: Ventricles and Extra axial spaces: Normal in size and morphology for the patient's age. Hemorrhage: None. Cerebral parenchyma: Areas of decreased attenuation in the white matter consistent with small vessel ischemic disease. There is no mass effect. Midline shift: None. Brainstem/Cerebellum: Normal. Calvarium: Normal. Visualized Paranasal sinuses/Mastoids: Clear. Soft Tissues: Unremarkable. IMPRESSION: No acute intracranial process. RADIATION DOSE DELIVERED: 743.38mGy.cm Total DLP DATA REPOSITORY: All CT scans at this facility are submitted to the National Radiology Data Registry (NRDR) Dose Index Registry (DIR) with the [employer] (ACR). RADIATION OPTIMIZATION: All CT scans at this facility use at least one of these dose optimization te chniques: automated exposure control; mA and/or kV adjustment per patient size (includes targeted exa ms where dose is matched to clinical indication); or iterative reconstruction.
--- NOTE | 2023-08-02 11:37 | DI.RAD_ITS ---
Exam(s) XR PELVIS AP EXAM: XR PELVIS AP CLINICAL HISTORY: fall. TECHNIQUE: 2D digital imaging was performed.One images were obtained. FINDINGS: BONES: No acute fracture is present. No bony destructive lesion is seen. JOINTS: No dislocation present. There is a stable left total hip replacement. No evidence of hardwar e failure. There are degenerative changes seen in the right hip and the sacroiliac joints. SOFT TISSUE: Vascular calcifications are present. IMPRESSION: No acute fracture or dislocation. DATA REPOSITORY: RADIATION DOSE DELIVERED:
[2023-08-02 11:56] LABS: Abs Immature Grans 0.01 10^3/uL (0.0-0.06); Absolute Basophil Count 0.01 10^3/uL (0.0-0.2); Absolute Eosinophil Count 0.06 10^3/uL (0.0-0.7); Absolute Lymphocyte Count 0.39 10^3/uL (1.2-3.4); Absolute Monocyte Count 0.31 10^3/uL (0.1-0.8); Absolute Neutrophil Count 6.55 10^3/uL (1.2-6.7); Basophils % 0.1; Eosinophils % 0.8; HCT 39.5 % (36.0-46.0); HGB 13.9 g/dL (11.2-15.7); Immature Grans % 0.1; Lymphocytes % 5.3; MCH 30.3 pg (27.0-33.0); MCHC 35.2 % (32.0-36.0); MCV 86 fL (80-95); MPV 9.8 fL (8.0-11.0); Monocytes % 4.2; Neutrophils % 89.5; RBC 4.58 10^6/uL (3.93-5.22); RDW 13.2 % (11.7-14.6); RDW-SD 41.2 fL; WBC 7.33 10^3/uL (4.4-10.8)
[2023-08-02 12:06] LABS: INR 1.2 (0.9-1.1); Prothrombin Time 11.7 sec (9.1-11.1)
[2023-08-02 12:10] LABS: Diff Comment Diff Reviewed; Platelet Count 73 10^3/uL (130-400); RBC Morphology Normal
--- NOTE | 2023-08-02 12:14 | DI.VRAD_ITS ---
PROCEDURE INFORMATION: Exam: XR Pelvis Exam date and time: 08/02/2023 12:02 PM Age: 72 years old Clinical indication: Pelvic pain following injury sustained when patient fell Condition or disease; Other: Fall TECHNIQUE: Imaging protocol: Radiologic exam of the pelvis. Views: 1 or 2 view. COMPARISON: CT ABDOMEN PELVIS W 07/23/2023 1:19 PM FINDINGS: Bones/joints: Previous left total hip replacement. 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 No obvious acute osseous abnormality involving the pelvic bones. Soft tissues: Unremarkable. IMPRESSION: No obvious acute pelvic fracture. Dictated and Authenticated by: Carlos Hobbs MD. Ordering:MARCIA Babb MD
--- NOTE | 2023-08-02 12:14 | DI.VRAD_ITS ---
PROCEDURE INFORMATION: Exam: CT Head Without Contrast Exam date and time: 08/02/2023 11:53 AM Age: 72 years old Clinical indication: Other: AMS TECHNIQUE: Imaging protocol: Computed tomography of the head without contrast. Radiation optimization: All CT scans at this facility use at least one of these dose optimization techniques: automated exposure control; mA and/or kV adjustment per patient size (includes targeted exams where dose is matched to clinical indication); or iterative reconstruction. COMPARISON: No relevant prior studies available. FINDINGS: Brain: Presumed chronic microvascular ischemic gliosis in bilateral cerebral white matter. No acute hemorrhage or abnormal mass effect is identified. No subdural collections are seen. Atherosclerotic calcifications involving bilateral carotid siphons and vertebral arteries at the skull base. Cerebral ventricles: Size within normal range for age. No midline shift. Paranasal sinuses: Visualized portions of paranasal sinuses are well aerated. Mastoid air cells: Visualized portions of mastoid sinuses are not opacified. Bones/joints: No fracture of the cranium is identified. Soft tissues: Other than as stated above, no obvious acute abnormality. IMPRESSION: No acute intracranial hemorrhage or mass effect. Dictated and Authenticated by: Carlos Hobbs MD. Ordering:[facility] Sg Babb MD
[2023-08-02 12:20] LABS: ALT 34 U/L (14-59); AST 36 U/L (15-37); Albumin 3.6 g/dL (3.4-5.0); Alkaline Phosphatase 110 U/L (46-116); Anion Gap 9.1 mmol/L (3-11); BUN 29 mg/dL (7-18); CO2 26.9 mmol/L (21.0-32.0); CREATININE 1.1 mg/dL (0.55-1.02); Calcium 9.8 mg/dL (8.5-10.1); Chloride 103 mmol/L (98-107); Estimated GFR 53.06 (mL/min/1.73m2); Glucose 174 mg/dL (74-106); Potassium 4.3 mmol/L (3.5-5.1); Sodium 139 mmol/L (136-145); TSH (W/Ref FT4) 2.22 uIU/mL (0.36-3.74); Total Protein 7.7 g/dL (6.4-8.2); Troponin I < 50 ng/L (< or =60)
[2023-08-02 12:21] LABS: ETHANOL BLOOD < 3.0 mg/dL (<10)
[2023-08-02 13:12] LABS: Bilirubin Negative (Negative); Blood Negative (Negative); Clarity Clear (Clear); Glucose Negative (Negative); Ketones Negative (Negative); Leukocyte Esterase Negative (Negative); Nitrite Negative (Negative); Specific Gravity <= 1.005 (1.005-1.025); Urobilinogen 0.2 mg/dL (Up to 0.2); pH 5.5 (5-8)
--- NOTE | 2023-08-02 13:46 | W.ED.GENAD ---
HPI General Date/Time Provider Initiated Documentation: 08/02/23 11:37. Limitations to Documentation: no limitations. Information obtained by: patient and family. HPI Narrative: 72-year-old female with past medical history of cognitive impairment, essential tremor, peripheral neuropathy, anxiety presents for evaluation of progressive worsening of weakness, fatigue and confusion. She presents with her son who she lives with. He reports that today she had a fall against the bed. Did not hit her head, no loss of consciousness. The fall was not observed, but he heard her in the next room and ran in to find her. He reports for the last 2 days she seems to be slightly more confused and not herself. She is having some more difficulty with getting around. She has not had any fever. No vomiting or diarrhea. He reports that she was recently evaluated for similar symptoms and they thought it was from dehydration. Related Data Home Medications Medication Instructions Recorded Confirmed atorvastatin 40 mg tablet 40 mg PO HS 01/01/17 08/02/23 losartan 25 mg tablet 25 mg PO DAILY 01/01/17 08/02/23 potassium chloride 20 mEq 20 meq PO BID 01/01/17 08/02/23 tablet,extended release (K-Tab) aspirin 81 mg tablet,delayed 81 mg PO DAILY #30 tab-caps 01/07/17 08/02/23 release (Aspir-) blood-glucose meter (MyVerse 06/11/17 08/02/23 UltraMini kit) bupropion HCl 300 mg 24 hr tablet, 300 mg PO DAILY 06/11/17 08/02/23 extended release docusate sodium 100 mg capsule 100 mg PO DAILY 05/11/18 08/02/23 fluoxetine 10 mg capsule 10 mg PO DAILY 09/18/22 08/02/23 psyllium husk 0.4 gram capsule 0.4 g PO DAILY PRN 09/18/22 08/02/23 (Metamucil) trazodone 50 mg tablet 50 mg PO QHS PRN 03/31/23 08/02/23 famotidine 20 mg tablet 20 mg PO DAILY 05/19/23 08/02/23 magnesium oxide 500 mg capsule 500 mg PO BID 05/19/23 08/02/23 semaglutide 1 mg/dose (4 mg/3 mL) 1 mg subcut QWEEK 05/19/23 08/02/23 subcutaneous pen injector (Ozempic) Allergies Allergy/AdvReac Type Severity Reaction Status Date / Time metformin Allergy Verified 08/02/23 11:49 Sulfa (Sulfonamide Allergy Verified 08/02/23 11:49 Antibiotics) lisinopril AdvReac Intermediate cough Verified 08/02/23 11:49 General Stated Complaint: [facility]Medical ARTURO: 3 Exam Narrative Exam Narrative: Review of Systems: All systems reviewed & are unremarkable except as noted in HPI and below Well-developed, no acute distress Elderly, frail NCAT PERRL, normal conjunctiva RRR, no murmurs Unlabored respiratory effort, clear breath sounds bilaterally Nondistended abdomen , nontender Extremities w/o deformity, no cyanosis, no edema No rashes or lesions. no focal neurologic deficits, alert and oriented appropriately Appropriate mood and affect Course Vital Signs Vital signs: Vital Signs Temperature 36.5 C 08/02/23 11:26 Pulse 106 H 08/02/23 11:26 Respiratory Rate 16 08/02/23 11:26 Blood Pressure 134/88 08/02/23 11:26 Pulse Oximetry 98 08/02/23 11:26 Temperature 36.5 C 08/02/23 11:32 Temperature Source Oral 08/02/23 11:32 Pulse 89 08/02/23 13:15 Pulse 90 08/02/23 13:20 Respiratory Rate 15 08/02/23 13:20 Respiratory Effort Normal, Non-Labored 08/02/23 11:53 Respiratory Depth Normal 08/02/23 11:53 Respiratory Pattern Normal 08/02/23 11:53 Blood Pressure 105/45 L 08/02/23 13:15 Blood Pressure Mean 64 08/02/23 13:15 Blood Pressure Position Supine 08/02/23 11:32 Pulse Oximetry 96 08/02/23 13:20 Oxygen Delivery Method Room Air 08/02/23 11:32 Oxygen Flow Rate 0 08/02/23 11:32 Pain Level 10 08/02/23 11:32 Comment Pt c/o chronic LBP 08/02/23 11:32 Lab/Test Results Lab/Test Results: Laboratory Tests Range/Units 08/02/23 08/02/23 11:44 12:39 WBC (4.4-10.8) 10^3/uL 7.33 RBC (3.93-5.22) 10^6/uL 4.58 Hgb (11.2-15.7) g/dL 13.9 Hct (36.0-46.0) % 39.5 MCV (80-95) fL 86 MCH (27.0-33.0) pg 30.3 MCHC (32.0-36.0) % 35.2 RDW (11.7-14.6) % 13.2 Plt Count (130-400) 10^3/uL 73 L MPV (8.0-11.0) fL 9.8 Immature Gran % 0.1 Neutrophils % 89.5 Lymphocytes % 5.3 Monocytes % 4.2 Eosinophils % 0.8 Basophils % 0.1 Nucleated RBC % (0.0-0.3) % 0.0 Absolute Neutrophils (1.2-6.7) 10^3/uL 6.55 Absolute Lymphocytes (1.2-3.4) 10^3/uL 0.39 L Absolute Monocytes (0.1-0.8) 10^3/uL 0.31 Absolute Eosinophils (0.0-0.7) 10^3/uL 0.06 Absolute Basophils (0.0-0.2) 10^3/uL 0.01 RBC Morphology Normal PT (9.1-11.1) sec 11.7 H INR (0.9-1.1) 1.2 H Sodium (136-145) mmol/L 139 Potassium (3.5-5.1) mmol/L 4.3 Chloride (98-107) mmol/L 103 Carbon Dioxide (21.0-32.0) mmol/L 26.9 Anion Gap (3-11) mmol/L 9.1 BUN (7-18) mg/dL 29 H Creatinine (0.55-1.02) mg/dL 1.1 H Est GFR (CKD-EPI 2020) (mL/min/1.73m2) 53.06 Glucose (74-106) mg/dL 174 H Calcium (8.5-10.1) mg/dL 9.8 Magnesium (1.8-2.4) mg/dL 2.0 Total Bilirubin (0.2-1.0) mg/dL 1.0 AST (15-37) U/L 36 ALT (14-59) U/L 34 Alkaline Phosphatase (46-116) U/L 110 Troponin I (< or =60) ng/L < 50 Total Protein (6.4-8.2) g/dL 7.7 Albumin (3.4-5.0) g/dL 3.6 TSH (0.36-3.74) uIU/mL 2.22 Urine Color (Yellow) Yellow Urine Clarity (Clear) Clear Urine pH (5-8) 5.5 Ur Specific [place] (1.005-1.025) <= 1.005 Urine Protein (Negative) mg/dL Negative Urine Ketones (Negative) mg/dL Negative Urine Blood (Negative) Negative Urine Nitrite (Negative) Negative Urine Bilirubin (Negative) Negative Urine Urobilinogen (Up to 0.2) mg/dL 0.2 Ur Leukocyte Esterase (Negative) Negative Urine Glucose (Negative) mg/dL Negative Ethyl Alcohol (<10) mg/dL < 3.0 Medical Decision Making Emergent evaluation of fatigue and confusion. At this time the patient is alert and oriented, there are no focal neurologic deficits. She does not meet criteria for a stroke code evaluation. She did have a fall today, though no signs of trauma on physical exam. She seems to be having some general decline in her level of function, though nothing significantly acute. Lab work reviewed, no significant abnormality. Her renal function is at baseline. I doubt clinical dehydration. She does not have acute EKG changes. Her imaging is not acutely remarkable. I discussed the workup findings with the patient and her son. I also reviewed the medical record and noted her recent neurology visit and some documentation of cognitive impairment. There were 2 pertinent issues 1 physical therapy and the second wearing CPAP. The patient states that she has not been wearing her CPAP. I did explain this could contribute to the symptoms she is having of confusion, daytime fatigue. The son states that she is scheduled to restart physical therapy next week. I advised to start wearing the CPAP as instructed and see if this improves her symptoms. At this time I do not feel that there is any indication for hospitalization. Both the patient and her son feel comfortable going home. Advised to return with worsening symptoms and follow-up closely with PCP Medical Records Medical records reviewed: Yes I reviewed the patient's medical records. Lab Data Lab results reviewed: Yes I reviewed the patient's lab results. ECG Data Interpretation: Sinus 103 left axis, nonspecific ST changes Quality:SDOH Health Related Social Needs: No Data to Display PFSH All Active Problems AMS (altered mental status) (Acute) UTI (urinary tract infection) (Acute) Nausea & vomiting (Acute) Scalp lesion (Acute) Peripheral neuropathy (Acute) Mild cognitive impairment (Acute) Encounter for screening colonoscopy (Acute) Current visit YES Essential tremor (Acute 07/15/17) Hypertension (Acute) Postoperative anemia (Acute) Depression (Acute) Insomnia (Acute) Insulin dependent diabetes mellitus (Acute) Medical History Obstructive sleep apnea Iron deficiency anemia Skin lesion of scalp Adjustment disorder with mixed anxiety and depressed mood Monoclonal gammopathy Hypomagnesemia History of neck pain Acute joint pain Dizziness Aphasia Memory loss Type 2 diabetes mellitus Metabolic syndrome Chronic kidney disease Loss of balance Hypercalcemia Constipation Fatigue Frequent falls Sleep apnea Hypertension Microcytic anemia Depression Diabetes Surgical History Status post left hip replacement DOS: 01/12/2017 Dr. Coronado H/O colonoscopy (05/14/18) dr durham, 1 benign polyp, repeat 10 years Social History Smoking/Tobacco Use Status: Never Smoking risk assessment performed?: Yes Drug use: Never Substance use type: does not use PAWSS Have you Been Recently Intoxicated or Drunk Within the Last 30 days?: No Have you Ever Experienced Previous Episodes of Alcohol Withdrawal?: No Have you ever Experienced Withdrawal Seizures?: No Have you ever Experienced Delirium Tremens(DT)s?: No Have you ever undergone Alcohol Rehabilitation Treatment (i.e, inpt ot outpatient treatment programs)?: No Have you ever Experienced Blackouts?: No Have you ever Combined Alcohol with other Downers within the last 90 days?: No Have you ever Combined Alcohol with any other Substance of Abuse during the last 90 days?: No Positive Blood Alcohol level on Presentation? [PCS.BAL]: No Evidence of Increased Autonomic Activity (i.e. HR>120, tremor, sweating, agitation, nausea)?: No Result: 0 Discharge Plan Disposition Patient Disposition: Home Discharge Details Clinical Impression: AMS (altered mental status) Primary Care Provider: Zelda Billings ED Provider: Elodia Bettencourt Home Meds and New Rx's Prescriptions: No Action fluoxetine 10 mg capsule 10 mg PO DAILY psyllium husk [Metamucil] 0.4 gram capsule 0.4 g PO DAILY PRN trazodone 50 mg tablet 50 mg PO QHS PRN Ozempic 1 mg/dose (4 mg/3 mL) pen injector 1 mg subcut QWEEK magnesium oxide 500 mg capsule 500 mg PO BID famotidine 20 mg tablet 20 mg PO DAILY aspirin [Aspir-81] 81 MG tablet,delayed release (DR/EC) 81 mg PO DAILY Qty: 30 (DME) blood-glucose meter [MyVerse UltraMini] 1 EACH kit 1 ea Miscellaneous DAILY bupropion HCl 300 MG tablet extended release 24 hr 300 mg PO DAILY docusate sodium 100 mg Capsule 100 mg PO DAILY atorvastatin 40 MG tablet 40 mg PO HS losartan 25 MG tablet 25 mg PO DAILY potassium chloride [K-Tab] 20 MEQ tablet extended release 20 meq PO BID Discharge Instructions Additional Instructions: wear CPAP every evening ambulate with caution around the house and keep follow up appointments with physical therapy follow up with PCP
== END 2023-08-02 13:52 | disposition home or self-care (01) ==
PROVIDERS: Emergency Provider Emergency Medicine; PCP Nurse Practitioner Family
DX: R42 Dizziness and giddiness (principal); R53.1 Weakness; E11.9 Type 2 diabetes mellitus without complications; I12.9 Hypertensive chronic kidney disease with stage 1 through stage 4 chronic kidney disease, or unspecified chronic kidney disease; N18.9 Chronic kidney disease, unspecified; F41.9 Anxiety disorder, unspecified; Z79.82 Long term (current) use of aspirin; Z79.85 Long-term (current) use of injectable non-insulin antidiabetic drugs; G31.84 Mild cognitive impairment of uncertain or unknown etiology; Z79.899 Other long term (current) drug therapy
CPT/HCPCS: 80053; 82962; 93005; 99284; 70450; 72170; 80320; 81003; 83735; 84443; 84484; 85025; 85610; 93010

== ENCOUNTER 2023-08-14 13:14 | Outpatient (REF) | payer OTHER, SELFPAY ==
[2023-08-14 15:27] LABS: Hemoglobin A1C 5.5 % (<5.7)
== END 2023-08-14 13:15 | disposition home or self-care (01) ==
LOC: NCHCN 13:14
PROVIDERS: PCP Nurse Practitioner Family; Visit Provider Nurse Practitioner Family
DX: E11.9 Type 2 diabetes mellitus without complications (principal)
CPT/HCPCS: 83036

== ENCOUNTER → 2023-08-21 00:29 | Outpatient (CLI) | payer OTHER, SELFPAY ==
--- NOTE | 2023-08-21 | DI.MAMMO_ITS ---
Exam(s) MAMMO SCREENING EXAM: MAMMO SCREENING CLINICAL HISTORY: SCREENING MAMMO FOR BREAST CANCER Z12.31 TECHNIQUE: Bilateral full field digital CC and MLO mammographic images were obtained with 3D tomosyn thesis and utilizing computer aided detection (CAD). COMPARISON: Available for comparison. FINDINGS: Masses/Architectural Distortion: None seen. Microcalcifications: No suspicious pleomorphic-type are seen. Skin Thickening/Nipple Retraction: None. IMPRESSION: 1. No significant interval change with no specific features of malignancy noted. 2. Unless there is more urgent need, screening mammography is recommended, as per [place] [employer] guidelines. BI-RADS Category 1 - Negative Breast Density - Category B - Scattered areas of fibroglandular density Breast density category C or D implies that the patient has dense breast tissue. Dense breast tissue is very common and is not abnormal but dense breast tissue can make it harder to find cancer on a ma mmogram. Also, dense breast tissue may increase their breast cancer risk. This information about the result of the mammogram report was provided to the patient to raise their awareness. Use this report when you speak with the patient about their risks for breast cancer, which includes their family hist ory. At that time, you may recommend for more screening tests (Ultrasound or MRI) as they might be us eful based on their risk. A negative radiographic report should not delay biopsy if a dominant or clinically suspicious mass is present. Up to ten percent of cancers are not identified on mammography. A negative report may reinforce clinical impression. Adenosis and dense breasts may obscure an underlying neoplasm. False positive reports average 6 to 10%. Patient will receive a letter notifying them of these results.
== END ==
PROVIDERS: PCP Nurse Practitioner Family; Visit Provider Nurse Practitioner Family
DX: Z12.31 Encounter for screening mammogram for malignant neoplasm of breast (principal)
CPT/HCPCS: 77063; 77067

== ENCOUNTER → 2023-09-07 02:06 | Outpatient (CLI) | payer OTHER, SELFPAY ==
--- NOTE | 2023-09-07 | DI.MRI_ITS ---
Exam(s) MR BRAIN WO EXAM: MR BRAIN WO CLINICAL HISTORY: IMPAIRED COGNITION R41.89 TECHNIQUE: Multiplanar multisequence MRI of the brain was performed. COMPARISON: No exams were available for comparison FINDINGS: VENTRICLES AND EXTRA AXIAL SPACES: Normal in size and morphology for the patient's age. MIDLINE SHIFT: None. CEREBRAL PARENCHYMA: No focus of restricted diffusion to suggest acute infarct. No space-occupying le marco identified. Mild atrophy consistent with the patient's age. Moderate scattered foci of high sig nal in the white matter consistent with sequela of chronic microvascular disease. HEMORRHAGE: None. BRAINSTEM/CEREBELLUM: Normal. VISUALIZED PARANASAL SINUSES/MASTOIDS:Mucosal thickening at the floor of the left maxillary sinus. Vasculature: Normal flow void. PITUITARY GLAND: Unremarkable. ORBITS: Unremarkable. IMPRESSION: Moderate small vessel changes in the white matter. DATA REPOSITORY:
== END ==
PROVIDERS: PCP Nurse Practitioner Family; Visit Provider Family Medicine
DX: R41.89 Other symptoms and signs involving cognitive functions and awareness (principal)
CPT/HCPCS: 70551

== ENCOUNTER 2023-10-20 16:45 | Outpatient (REF) | payer OTHER, SELFPAY ==
[2023-10-20 21:06] LABS: Abs Immature Grans 0.01 10^3/uL (0.0-0.06); Absolute Basophil Count 0.01 10^3/uL (0.0-0.2); Absolute Lymphocyte Count 0.65 10^3/uL (1.2-3.4); Absolute Neutrophil Count 1.71 10^3/uL (1.2-6.7); Basophils % 0.4; Eosinophils % 3.7; HGB 11.9 g/dL (11.2-15.7); Immature Grans % 0.4; Lymphocytes % 24.3; MCH 29.9 pg (27.0-33.0); MCHC 33.1 % (32.0-36.0); MCV 91 fL (80-95); MPV 9.8 fL (8.0-11.0); Monocytes % 7.5; Neutrophils % 63.7; RBC 3.98 10^6/uL (3.93-5.22); RDW-SD 46.9 fL; WBC 2.68 10^3/uL (4.4-10.8)
[2023-10-20 21:07] LABS: Platelet Count 82 10^3/uL (130-400)
[2023-10-20 21:15] LABS: Diff Comment PLT Morph Reviewed; RBC Morphology Normal
== END 2023-10-20 16:46 | disposition home or self-care (01) ==
LOC: NCHCN 16:45
PROVIDERS: PCP Nurse Practitioner Family; Visit Provider Nurse Practitioner Family
DX: D69.6 Thrombocytopenia, unspecified (principal)
CPT/HCPCS: 85025

== ENCOUNTER → 2023-12-30 13:34 | Outpatient (BNVA) | payer OTHER, SELFPAY | PROVIDERS: PCP Nurse Practitioner Family; Visit Provider Nurse Practitioner Adult Health | DX: R29.6 Repeated falls (principal); G31.84 Mild cognitive impairment of uncertain or unknown etiology; G62.9 Polyneuropathy, unspecified | CPT/HCPCS: 99215 ==

== ENCOUNTER 2024-01-19 16:24 | Outpatient (REF) | payer OTHER, SELFPAY ==
[2024-01-19 21:20] LABS: Abs Immature Grans 0.01 10^3/uL (0.0-0.06); Absolute Basophil Count 0.01 10^3/uL (0.0-0.2); Absolute Eosinophil Count 0.11 10^3/uL (0.0-0.7); Absolute Lymphocyte Count 0.51 10^3/uL (1.2-3.4); Absolute Monocyte Count 0.21 10^3/uL (0.1-0.8); Absolute Neutrophil Count 2.67 10^3/uL (1.2-6.7); Basophils % 0.3 %; Eosinophils % 3.1 %; HCT 33.8 % (36.0-46.0); HGB 11.3 g/dL (11.2-15.7); Immature Grans % 0.3 %; Lymphocytes % 14.5 %; MCH 29.7 pg (27.0-33.0); MCHC 33.4 % (32.0-36.0); MCV 89 fL (80-95); MPV 9.6 fL (8.0-11.0); Neutrophils % 75.8 %; RBC 3.81 10^6/uL (3.93-5.22); RDW-SD 45.3 fL; WBC 3.52 10^3/uL (4.4-10.8)
[2024-01-19 21:29] LABS: Anion Gap 7.9 mmol/L (3-11); BUN 23 mg/dL (7-18); CO2 28.1 mmol/L (21.0-32.0); CREATININE 1.2 mg/dL (0.55-1.02); Calcium 9.5 mg/dL (8.5-10.1); Calculated LDL 63 mg/dL (<100); Chloride 108 mmol/L (98-107); Cholesterol 142 mg/dL (<200); Glucose 135 mg/dL (74-106); HDL Cholesterol 63 mg/dL (40-60); Potassium 4.1 mmol/L (3.5-5.1); Sodium 144 mmol/L (136-145); Triglyceride 82 mg/dL (<150)
[2024-01-19 22:09] LABS: Platelet Count 98 10^3/uL (130-400)
== END 2024-01-19 16:25 | disposition home or self-care (01) ==
LOC: NCHCN 16:24
PROVIDERS: PCP Nurse Practitioner Family; Visit Provider Nurse Practitioner Family
DX: I10 Essential (primary) hypertension (principal); D69.6 Thrombocytopenia, unspecified
CPT/HCPCS: 80048; 80061; 85025

== ENCOUNTER 2024-05-09 03:12 | Outpatient (CLI) | payer OTHER, SELFPAY ==
[2024-05-09 16:43] LABS: Abs Immature Grans 0.01 10^3/uL (0.0-0.06); Absolute Eosinophil Count 0.07 10^3/uL (0.0-0.7); Absolute Lymphocyte Count 0.65 10^3/uL (1.2-3.4); Absolute Monocyte Count 0.19 10^3/uL (0.1-0.8); Absolute Neutrophil Count 2.16 10^3/uL (1.2-6.7); Eosinophils % 2.3 %; HCT 36.3 % (36.0-46.0); HGB 12.1 g/dL (11.2-15.7); Immature Grans % 0.3 %; Lymphocytes % 21.1 %; MCH 29.6 pg (27.0-33.0); MCHC 33.3 % (32.0-36.0); MCV 89 fL (80-95); MPV 8.8 fL (8.0-11.0); Monocytes % 6.2 %; Neutrophils % 70.1 %; RBC 4.09 10^6/uL (3.93-5.22); RDW 14.9 % (11.7-14.6); RDW-SD 47.8 fL; WBC 3.08 10^3/uL (4.4-10.8)
[2024-05-09 16:49] LABS: Diff Comment Diff Reviewed; Platelet Count 70 10^3/uL (130-400); RBC Morphology Normal
[2024-05-09 17:28] LABS: Iron 109 ug/dL (50-170); Total Iron Binding Capacity 313 ug/dL (250-450); Transferrin Sat 35 % (15-50)
[2024-05-09 18:27] LABS: ALT 51 U/L (14-59); AST 49 U/L (15-37); Albumin 3.5 g/dL (3.4-5.0); Alkaline Phosphatase 128 U/L (46-116); Anion Gap 9.5 mmol/L (3-11); BUN 22 mg/dL (7-18); Bilirubin, Total 0.52 mg/dL (0.2-1.0); CO2 29.5 mmol/L (21.0-32.0); Calcium 9.6 mg/dL (8.5-10.1); Chloride 106 mmol/L (98-107); Estimated GFR 59.12 (mL/min/1.73m2); Ferritin 51 ng/mL (8-252); Glucose 111 mg/dL (74-106); Potassium 4.4 mmol/L (3.5-5.1); Sodium 145 mmol/L (136-145); Total Protein 7.2 g/dL (6.4-8.2)
[2024-05-09 18:38] LABS: LDH 269 U/L (81-234)
[2024-05-11 14:55] LABS: Albumin 64.4 % (55.8-66.1); Albumin g/dL 4.5 g/dL (3.6-5.2); Comment (See Note)
[2024-05-11 15:53] LABS: Immunotyping, Serum (See Note)
== END 2024-05-09 03:13 | disposition home or self-care (01) ==
PROVIDERS: PCP Nurse Practitioner Family; Visit Provider Nurse Practitioner Adult Health
DX: D69.6 Thrombocytopenia, unspecified (principal); D47.2 Monoclonal gammopathy; D50.0 Iron deficiency anemia secondary to blood loss (chronic)
CPT/HCPCS: 36415; 80053; 82728; 83540; 83550; 83615; 84165; 85025; 86320

== ENCOUNTER → 2024-06-22 12:22 | Outpatient (BNVA) | payer OTHER, SELFPAY | PROVIDERS: PCP Nurse Practitioner Family; Referring Provider Nurse Practitioner Family; Visit Provider Nurse Practitioner Adult Health | DX: G31.84 Mild cognitive impairment of uncertain or unknown etiology (principal); G62.9 Polyneuropathy, unspecified | CPT/HCPCS: 99213 ==

== ENCOUNTER 2024-07-28 20:23 | Outpatient (REF) | payer MEDICARE, SELFPAY ==
[2024-07-28 20:50] LABS: Abs Immature Grans 0.01 10^3/uL (0.0-0.06); Absolute Basophil Count 0.01 10^3/uL (0.0-0.2); Absolute Eosinophil Count 0.08 10^3/uL (0.0-0.7); Absolute Lymphocyte Count 0.55 10^3/uL (1.2-3.4); Absolute Monocyte Count 0.21 10^3/uL (0.1-0.8); Absolute Neutrophil Count 3.37 10^3/uL (1.2-6.7); Basophils % 0.2 %; Eosinophils % 1.9 %; HCT 39.1 % (36.0-46.0); HGB 13.1 g/dL (11.2-15.7); Immature Grans % 0.2 %; MCH 30.2 pg (27.0-33.0); MCHC 33.5 % (32.0-36.0); MCV 90 fL (80-95); Neutrophils % 79.7 %; RBC 4.34 10^6/uL (3.93-5.22); RDW 13.9 % (11.7-14.6); WBC 4.23 10^3/uL (4.4-10.8)
[2024-07-28 21:03] LABS: Platelet Count 77 10^3/uL (130-400)
[2024-07-28 21:09] LABS: Iron 78 ug/dL (50-170); Total Iron Binding Capacity 323 ug/dL (250-450); Transferrin Sat 24 % (15-50)
[2024-07-28 21:22] LABS: ALT 36 U/L (14-59); AST 30 U/L (15-37); Albumin 3.6 g/dL (3.4-5.0); Alkaline Phosphatase 130 U/L (46-116); Anion Gap 8.6 mmol/L (3-11); BUN 21 mg/dL (7-18); Bilirubin, Total 0.95 mg/dL (0.2-1.0); CO2 28.4 mmol/L (21.0-32.0); Calcium 9.7 mg/dL (8.5-10.1); Chloride 104 mmol/L (98-107); Estimated GFR 59.12 (mL/min/1.73m2); Ferritin 56 ng/mL (8-252); Glucose 129 mg/dL (74-106); Magnesium 1.8 mg/dL (1.8-2.4); Potassium 4.4 mmol/L (3.5-5.1); Sodium 141 mmol/L (136-145); Total Protein 7.3 g/dL (6.4-8.2)
[2024-07-28 21:34] LABS: LDH 217 U/L (81-234)
[2024-08-02 15:34] LABS: Albumin 52.8 % (55.8-66.1); Albumin g/dL 3.9 g/dL (3.6-5.2); Comment (See Note); Monoclonal Spike g/dL 0.2 g/dL (None Seen); Total Protein 7.3 g/dL (6.3-8.2)
[2024-08-02 15:46] LABS: Immunotyping, Serum (See Note)
== END 2024-07-28 20:24 | disposition home or self-care (01) ==
LOC: NCHCN 20:23
PROVIDERS: PCP Nurse Practitioner Family; Visit Provider Nurse Practitioner Family
DX: D69.6 Thrombocytopenia, unspecified (principal); G47.62 Sleep related leg cramps; D50.0 Iron deficiency anemia secondary to blood loss (chronic); D47.2 Monoclonal gammopathy
CPT/HCPCS: 80053; 82728; 83540; 83550; 83615; 83735; 84165; 85025; 86320

== ENCOUNTER 2025-01-27 16:40 | Outpatient (REF) | payer MEDICARE, SELFPAY ==
[2025-01-27 21:28] LABS: Abs Immature Grans 0.00 10^3/uL (0.0-0.06); HCT 38.5 % (36.0-46.0); HGB 13.3 g/dL (11.2-15.7); Immature Grans % 0.0 %; MCH 30.6 pg (27.0-33.0); MCHC 34.5 % (32.0-36.0); MCV 89 fL (80-95); MPV 9.7 fL (8.0-11.0); RBC 4.35 10^6/uL (3.93-5.22); RDW 13.3 % (11.7-14.6); RDW-SD 43.5 fL; WBC 3.10 10^3/uL (4.4-10.8)
[2025-01-27 21:44] LABS: Iron 84 ug/dL (50-170); Total Iron Binding Capacity 310 ug/dL (250-450); Transferrin Sat 27 % (15-50)
[2025-01-27 22:04] LABS: ALT 46 U/L (14-59); AST 35 U/L (15-37); Albumin 3.8 g/dL (3.4-5.0); Alkaline Phosphatase 105 U/L (46-116); Anion Gap 8.7 mmol/L (3-11); BUN 20 mg/dL (7-18); Bilirubin, Total 0.7 mg/dL (0.2-1.0); CO2 28.3 mmol/L (21.0-32.0); Calcium 9.4 mg/dL (8.5-10.1); Chloride 103 mmol/L (98-107); Estimated GFR 66.67 (mL/min/1.73m2); Ferritin 67 ng/mL (8-252); Glucose 140 mg/dL (74-106); Potassium 4.1 mmol/L (3.5-5.1); Sodium 140 mmol/L (136-145); Total Protein 7.2 g/dL (6.4-8.2)
[2025-01-27 22:16] LABS: LDH 260 U/L (81-234)
[2025-01-27 22:17] LABS: Platelet Count 65 10^3/uL (130-400)
[2025-01-28 22:11] LABS: Total Protein 7.0 g/dL (6.3-8.2)
[2025-01-30 14:29] LABS: Albumin 55.1 % (55.8-66.1); Albumin g/dL 3.9 g/dL (3.6-5.2); Alpha 1 g/dL 0.30 g/dL (0.15-0.40); Alpha 2 g/dL 0.70 g/dL (0.50-1.00); Beta g/dL 1.10 g/dL (0.60-1.20); Gamma g/dL 1.10 g/dL (0.60-1.60); Monoclonal Spike g/dL 0.3 g/dL (None Seen)
== END 2025-01-27 16:41 | disposition home or self-care (01) ==
LOC: LBN 16:40
PROVIDERS: PCP Nurse Practitioner Family; Visit Provider Nurse Practitioner Adult Health
DX: D69.6 Thrombocytopenia, unspecified (principal)
CPT/HCPCS: 80053; 82728; 83540; 83550; 83615; 84165; 85025